=== PATIENT | male | born 1950 | race Caucasian/White ===

== ENCOUNTER 2017-01-17 07:05 | Inpatient (IN) | payer OTHER ==
[~2017-01-17] VITALS: Ht 175.3 cm; Wt 129.0 kg
--- NOTE | 2017-01-17 07:25 | NUR ---
HX CHRONIC BACK PAIN, WORSE TODAY, C/O DIARRHEA, DECREASED APPETITE, GENERALIZED WEAKNESS, DR MORENO AT BEDSIDE, LABS DRAWN AND SENT TO LAB
[2017-01-17 07:45] LABS: PLATELET COUNT 237 x10^3mcL (130-400)
[2017-01-17 08:14] LABS: RED CELL DISTRIBUTION WIDTH 15.7 % (11.5-14.5)
[2017-01-17 08:36] LABS: CK-MB 2.6 ng/mL (0-3.6)
[2017-01-17 08:52] LABS: BILIRUBIN TOTAL 0.57 mg/dL (0.20-1.00); C REACTIVE PROTEIN 3.4 mg/dL (<=0.9); CALCIUM 7.3 mg/dL (8.5-10.1); CARBON DIOXIDE 19.3 mmol/L (21-32); CREATININE SERUM 3.7 mg/dL (0.7-1.3)
[2017-01-17 08:54] LABS: ALBUMIN 1.2 g/dL (3.4-5.0); TOTAL PROTEIN, SERUM 4.5 g/dL (6.4-8.2)
[2017-01-17 08:57] LABS: POTASSIUM SERUM 5.8 mmol/L (3.5-5.1)
[2017-01-17 09:11] LABS: SEGMENTED NEUTROPHILS 52 % (37-75)
[2017-01-17 09:12] LABS: ATYPICAL LYMPH 1 %; BAND NEUTROPHIL 32 % (0-10); BASOPHIL 0 % (0-2); MONOCYTE 6 % (0-7)
[2017-01-17 09:13] LABS: PLATELET MORPHOLOGY N; rbc morphology (normal/abnorm) ABNORMAL (NORMAL)
[2017-01-17 09:29] LABS: ERYTHROCYTE SED RATE 42 mm/hr (0-20)
[2017-01-17] MEDS ORDERED: HYDROXYCHLOROQ200 MG PO (09:53)
[2017-01-17] MEDS ORDERED: CARVEDILOL12.5 M1 PO (09:53)
[2017-01-17] MEDS ORDERED: PREDNISONE5 MG PO (09:53)
[2017-01-17] MEDS ORDERED: FUROSEMIDE40 MG PO (09:54)
[2017-01-17] MEDS ORDERED: KLOR-CON M2020 MEQ PO (09:54)
--- NOTE | 2017-01-17 09:54 | NUR ---
16 FR JACOBSON CATH INDWELLING, ASEPTIC PROCEDURE, WELL TOLERATED, URINE TO LAB
[2017-01-17] MEDS ORDERED: METOLAZONE5 M1 PO (09:55)
[2017-01-17] MEDS ORDERED: ALDACTONE25 MG PO (09:55)
[2017-01-17 10:04] LABS: microscopic required? NO
[2017-01-17 10:14] LABS: urine erythrocyte NEGATIVE (NEGATIVE)
--- NOTE | 2017-01-17 10:30 | NUR ---
RESIDENT SAMEER DE OLIVEIRA AT BEDSIDE
[2017-01-17 10:39] LABS: MAGNESIUM 2.1 mg/dL (1.8-2.4)
[2017-01-17 10:45] LABS: CHOLESTEROL/HDL RATIO 3.4
--- NOTE | 2017-01-17 10:59 | NUR ---
REPORT GIVEN TO DARRYL RN FOR FURTHER CARE OF PT
--- NOTE | 2017-01-17 11:05 | NUR ---
PT ARRIVED TO UNIT AT THIS TIME ACCOMPANIED BY ED NURSE AND TECH. PT TRANSFERRED TO ICU BED VIA DRAWSHEET METHOD. PT A&OX4 BUT DROWSY. RASH NOTED TO RUE AND BACK. PT STATES HAVING COME TO THE HOSPITAL FOR "SEVERE BACK PAIN" BUT "FEELS BETTER NOW". PT PLACED ON MONITOR. PT HAS AICD IN L UPPER CHEST.
[2017-01-17 11:17] LABS: POTASSIUM SERUM 4.9 mmol/L (3.5-5.1)
--- NOTE | 2017-01-17 11:23 | NUR ---
DR DE OLIVEIRA CALLED AT THIS TIME AND INFORMED THAT PT IS STATING THAT HE IS UNSURE OF CODE STATUS. PT'S BP ALSO 72/47 WITH MAP 56. PHYSICIAN INFORMED. STATED SHE WILL BE DOWN TO ASSESS.
[2017-01-17 11:25] LABS: CALCIUM 7.5 mg/dL (8.5-10.1); CARBON DIOXIDE 17.8 mmol/L (21-32); CREATININE SERUM 3.9 mg/dL (0.7-1.3)
--- NOTE | 2017-01-17 11:26 | NUR ---
DR DE OLIVEIRA AT BEDSIDE AT THIS TIME TO DISCUSS CODE STATUS WITH PT. PT STATES WANTING TO DISCUSS CODE STATUS WITH HIS . PT EDUCATED ON CENTRAL LINE PLACEMENT. PT CONSENTED TO CENTRAL LINE.
--- NOTE | 2017-01-17 11:33 | NUR ---
CRITICAL RECEIVED FROM LAB AT THIS TIME. GLUCOSE 57. BLOOD SUGAR CHECKED AT BEDSIDE, POC. 30. RECHECKED. 30. DR DE OLIVEIRA PAGED. D50 IVP ADMINISTERED AT THIS TIME.
--- NOTE | 2017-01-17 11:35 | NUR ---
FLUID BOLUS COMPLETED AT THIS TIME.
--- NOTE | 2017-01-17 11:54 | NUR ---
CALLED PHARMACY AT THIS TIME TO REQUEST BAG OF LEVOPHED
--- NOTE | 2017-01-17 12:05 | NUR ---
LEVOPHED INITIATED AT THIS TIME AT 2MCG/MIN. PT'S BP 84/42 MAP 56. WILL MONITOR AND INCREASE DOSING NEEDED.
--- NOTE | 2017-01-17 12:12 | NUR ---
PT'S LEVOPHED TITRATED UP TO 4MCG/MIN AT THIS TIME. BP 90/24 WITH MAP 62
[2017-01-17 12:16] VITALS: BP 87/46
--- NOTE | 2017-01-17 12:30 | NUR ---
PT'S LEVOPHED TITRATED UP TO 6MCG/MIN AT THIS TIME. BP 80/51 WITH A MAP 61
--- NOTE | 2017-01-17 12:48 | NUR ---
PT'S BLOOD SUGAR ASSESSED AT THIS TIME. 30, REPEAT 34. D50 IVP GIVEN. WILL REASSESS.
--- NOTE | 2017-01-17 12:51 | NUR ---
PT' LEVOPHED TITRATED UP TO 8MCG/MIN AT THIS TIME. BP 86/43 WITH MAP 64
--- NOTE | 2017-01-17 12:52 | NUR ---
TIME OUT AT BEDSIDE WITH MANUFACTURING PROJECT MANAGER AND DR. ALMEIDA AND . DR. SY AND AT BEDSIDE TO INSERT CENTRAL LINE.
--- NOTE | 2017-01-17 13:29 | NUR ---
PORTABLE CHEST XRAY AT BEDSIDE TO CONFIRMED RIJ PLACEMENT.
[2017-01-17 14:58] LABS: T3 TOTAL 0.53 ng/mL
--- NOTE | 2017-01-17 15:15 | NUR ---
DR GREEN AT BEDSIDE AT THIS TIME WITH DR DE OLIVEIRA. ALL QUESTIONS ANSWERED. UPDATES PROVIDED. NEW ORDERS RECEIVED AT THIS TIME.
--- NOTE | 2017-01-17 15:21 | NUR ---
BS 57, REPEAT BS 52. WILL PUSH D50 AND NOTIFY .
--- NOTE | 2017-01-17 15:29 | NUR ---
DR. GREEN AT BEDSIDE ASSESSING PT.
--- NOTE | 2017-01-17 15:35 | NUR ---
PT PLACED ON BIPAP AT THIS TIME PER DR GREEN'S ORDER.
[2017-01-17 15:56] LABS: RED BLOOD CELLS 3.3 M/mm3 (4.52-5.90)
--- NOTE | 2017-01-17 16:00 | NUR ---
DR GREEN AND CHARGE NURSE IN FAMILY CONFERENCE AT THIS TIME. POC DISCUSSED. PALLIATIVE CARE PLAN DISCUSSED WITH FAMILY. FAMILY TO UPDATE STAFF.
--- NOTE | 2017-01-17 16:15 | NUR ---
PT'S LEVOPHED TITRATED UP TO 13MCG/MIN AT THIS TIME. SBP TRENDING IN 70S WITH MAP 54.
--- NOTE | 2017-01-17 16:18 | NUR ---
MICRO CALLED UNIT AT THIS TIME. PT HAS GRAM NEGATIVE RODS IN BLOOD. SUPERVISOR ESTIMATOR AND DRAFTER PAGED.
[2017-01-17 16:19] LABS: IRON 5 ug/dL (65-170); TOTAL IRON BINDING CAPACITY 156 ug/dL (250-450)
--- NOTE | 2017-01-17 16:25 | NUR ---
LAB CALLED UNIT AT THIS TIME. TROPONINS 0.148 DR DE OLIVEIRA PAGED.
--- NOTE | 2017-01-17 16:30 | NUR ---
CALL PHONE CALLED AT THIS TIME. BLOOD SUGAR REMAINS IN THE 50s. D50 HAS BEEN GIVEN X5. NS DC'D. D5NS RATE INCREASED TO 125ML/HR PER DR ALMEIDA.
--- NOTE | 2017-01-17 16:30 | NUR ---
BP 84/48 MAP 61, HR 53, TIATRATE LEVOPHED TO 22MCG/MIN.
--- NOTE | 2017-01-17 16:35 | NUR ---
DR DE OLIVEIRA CALLED UNIT AT THIS TIME. INFORMED OF GRAM NEGATIVE RODS IN BLOOD, TROPONIN LEVEL TRENDING UP, AND CHANGES TO BLOOD SUGAR AND D5NS LEVEL. NO NEW ORDERS RECEIVED.
--- NOTE | 2017-01-17 16:39 | NUR ---
PT'S BP 71/43 MAP 61 TIATRATE LEVOPHED TO 15MCG/MIN. WILL CONTINUE TO MONITOR.
[2017-01-17 16:45] LABS: FREE T4 1.53 ng/dL (0.76-1.46); FREE THYROXINE INDEX 2.4 ug/dL (1.4-4.5); T4(THYROXINE) 6.3 ug/dL (4.7-13.3)
--- NOTE | 2017-01-17 17:00 | NUR ---
BP 75/44 MAP 53 TIATRATE LEVOPHEN TO 17MCG/MIN.
--- NOTE | 2017-01-17 17:13 | NUR ---
DR. WU PHONE IN ORDERS FOR STAT DOPAMINE TO TIATRATE UP TO 20MCG AND SBP >100. ALBUMIN 100CC FOR 25% Q8HR X3. EKG STAT AND REPEAT EKG TOMORROW AM.
--- NOTE | 2017-01-17 17:15 | NUR ---
DR GREEN CALLED UNIT AT THIS TIME. ABG RESULTS READ TO PHYSICIAN BY CHIRAG MACKENZIE. PER DR GREEN, CODE STATUS TO BE CONFIRMED BY R2 AND PT'S . IF PT IS FULL CODE, PT TO BE INTUBATED.
--- NOTE | 2017-01-17 17:18 | NUR ---
DR ALMEIDA CALLED AND NOTIFIED OF NEED TO HAVE CODE STATUS DISCUSSION WITH PT'S .
--- NOTE | 2017-01-17 17:30 | NUR ---
DR ALMEIDA AND DR DE OLIVEIRA SPEAKING TO PT'S ABOUT CODE STATUS. PT REMAINS FULL CODE. PT'S INFORMED THAT PT WILL HAVE TO BE INTUBATED.
--- NOTE | 2017-01-17 17:30 | NUR ---
BP 84/46 MAP45 HR 62 TIATRATE LEVOPHED TO 19MCG/MIN.
--- NOTE | 2017-01-17 17:45 | NUR ---
ORDER RECEIVED FROM DR GREEN TO INTUBATE, DR KRAUSE FROM ED NOTIFIED.
--- NOTE | 2017-01-17 17:50 | NUR ---
2 AMP BICARB ADMINISTERED, [address] GREEN AND AN ADDITIONAL PER DR KRAUSE.
--- NOTE | 2017-01-17 18:00 | NUR ---
ONE [facility] EPI PROVIDED TO DR KRAUSE FOR PREMEDICATION.
--- NOTE | 2017-01-17 18:10 | NUR ---
INTUBATION NOTE: 1805: ETOMIDATE 10MG ADMINISTERED 1806: ROCURONIUM 100MG ADMINISTERED 1807: PT INTUBATED BY DR ALMEIDA AND DR KRAUSE ETT SIZE 8.0 LL 23. INITIAL VENT SETTINGS: AC MODE Vt 600, RATE 20, FiO2 100%, PEEP 5.
[2017-01-17 18:19] VITALS: BP 85/61; BP 86/61
[2017-01-17 18:45] LABS: CREATININE SERUM 3.6 mg/dL (0.7-1.3); POTASSIUM SERUM 4.9 mmol/L (3.5-5.1)
--- NOTE | 2017-01-17 19:15 | NUR ---
HEAD STRENGTH AND CONDITIONING COACH AT BEDSIDE FOR CHEST XRAY.
--- NOTE | 2017-01-17 19:20 | NUR ---
RECEIVED PT REPORT FROM HANSEL ANDREWS. QUESTIONS AND CONCERNS ADDRESSED BEDSIDE.
--- NOTE | 2017-01-17 19:21 | NUR ---
RECEIVED PT INTUBATED, ETT AT 24 LL, 8.0 TUBE SIZE. DOES NOT FOLLOW COMMANDS, UNABLE TO MAKE NEEDS KNOWN. RESPONDS TO PAINFUL STIMULUS, PUPILS 3MM SLUGGISH REACTION TO LIGHT BILATERALLY. ETT TO VENT SETTINGS, AC MODE, RATE 20, FIO2 100%, PEEP 5, VT 600. CLEAR LUNG SOUNDS BUL, DIMINISHED BLL. PT HAS PACEMAKER IN PLACE, S1/S2 HEART TONES AUSCULTATED. CAP REFILL AT 3 SECONDS, WEAK PULSES BUE/BLE, +1 EDEMA TO BUE/BLE, DUSKEY DISCOLORATION TO BUE/BLE. ABDOMEN IF FIRM/DISTENDED, HYPOACTIVE BOWEL SOUNDS. F/C IN PLACE DRAINING TO GRAVITY, NO PENILE DISCHARGE, SCROTAL EDEMA NOTED. OGT IN PLACE. TURNED AND REPOSITIONED Q2H. SINUS ROSALINDA NOTED TO LENS POLISHER HAND. WILL MONITOR PT CLOSELY.
--- NOTE | 2017-01-17 19:35 | NUR ---
JOCELINE RT AT BEDSIDE, FIO2 TITRATED TO 50%.
[2017-01-17 19:55] VITALS: BP 89/59
[2017-01-17 20:00] VITALS: BP 111/68
--- NOTE | 2017-01-17 20:10 | NUR ---
PRINTED CIRCUIT LAYOUT TAPER, DR. WARE, DR. ALMEIDA AT [facility] FOR L CENTRAL LINE PLACEMENT, AND R NICOLE CATH PLACEMENT.
--- NOTE | 2017-01-17 21:00 | NUR ---
XRAY TECHS AT BEDSIDE FOR XRAY.
--- NOTE | 2017-01-17 21:10 | NUR ---
JOCELINE RT AT BEDSIDE, RATE TITRATED TO 18, VT TITRATED TO [address] OCONONR.
--- NOTE | 2017-01-17 21:12 | NUR ---
DR. GODWIN AT BEDSIDE, NEW ORDERS RECEIVED.
--- NOTE | 2017-01-17 21:56 | NUR ---
RT AT BEDSIDE FOR ABG.
[2017-01-17 22:20] VITALS: BP 108/56
--- NOTE | 2017-01-17 22:43 | NUR ---
UNABLE TO OBTAIN ABG AFTER MULTIPLE ATTEMPTS FROM [facility]'S GISELLE VINES D.TRAN; DR. LU NOTIFIED. VENOUS SAMPLE REPORTED TO DR. LU.
[2017-01-17 23:55] VITALS: BP 111/51
[2017-01-18] VITALS (18 sets, daily range): BP systolic 74–119; BP diastolic 45–82
--- NOTE | 2017-01-18 00:30 | NUR ---
JOCELINE RT AT BEDSIDE, FIO2 TIRTRATED TO 40%.
--- NOTE | 2017-01-18 01:55 | NUR ---
JOCELINE RT AT BEDSIDE, FIO2 TITRATED TO 35%.
--- NOTE | 2017-01-18 02:45 | NUR ---
VERSED STARTED AT 1 MG/HR, AND FENTANYL STARTED AT 1 MCG/KG/HR AT THIS TIME. WILL MONITOR PT CLOSELY.
--- NOTE | 2017-01-18 03:23 | NUR ---
PEDIATRIC PHYSICIAN ASSISTANT AT BEDSIDE FOR BLOOD DRAW.
--- NOTE | 2017-01-18 04:07 | NUR ---
DIALYSIS NURSE AT BEDSIDE AT THIS TIME FOR DIALYSIS.
[2017-01-18 04:22] LABS: CALCIUM 6.9 mg/dL (8.5-10.1); CARBON DIOXIDE 21.8 mmol/L (21-32); CREATININE SERUM 3.7 mg/dL (0.7-1.3); PHOSPHOROUS 5.6 mg/dL (2.5-4.9); POTASSIUM SERUM 4.2 mmol/L (3.5-5.1)
[2017-01-18 04:26] LABS: MAGNESIUM 1.7 mg/dL (1.8-2.4); URIC ACID 8.3 mg/dL (3.5-7.2)
--- NOTE | 2017-01-18 04:27 | NUR ---
PAGE GATED DR. WARE ABOUT TROPININ LEVEL.
--- NOTE | 2017-01-18 05:00 | NUR ---
INFORMATION SERVICES ASSISTANT AT BEDSIDE FOR BLOOD DRAW.
--- NOTE | 2017-01-18 05:20 | NUR ---
DR. DIAZ AT BEDSIDE, QUESTIONS AND CONCERNS ADDRESSED BEDSIDE.
--- NOTE | 2017-01-18 05:27 | NUR ---
DR. LINDSEY AT BEDSIDE, QUESTIONS AND CONCERNS ADDRESSED BEDSIDE.
--- NOTE | 2017-01-18 06:55 | NUR ---
DAILYSIS FINISHED AT THIS TIME. 500 ML OUT.
--- NOTE | 2017-01-18 07:00 | NUR ---
PT REPORT GIVEN TO HANSEL KEITA. QUESTIONS AND CONCERNS ADDRESSED BEDSIDE.
--- NOTE | 2017-01-18 07:05 | NUR ---
REPORT RECEIVED AT THIS TIME FROM NOC RN. ALL QUESTIONS ANSWERED, ALL CONCERNS ADDRESSED.
--- NOTE | 2017-01-18 07:30 | NUR ---
HEMODIALYSIS FINISHED AT THIS TIME. NURSE REMOVED 500ML. PT TOLERATED WELL.
--- NOTE | 2017-01-18 07:55 | NUR ---
RT AT BEDSIDE FOR EKG.
--- NOTE | 2017-01-18 08:00 | NUR ---
PT ASSESSED AT THIS TIME. PT LAYING IN BED RESTING COMFORTABLY AT THIS TIME. PT REMAINS SEDATED AT 1MG/HR OF VERSED AND 1MCG/KG/HR OR FENTANYL. PT HAS MRSS 3 AT THIS TIME. PT ABLE TO MAKE NEEDS KNOWN BY NODDING. NO ACUTE SIGNS OF DISTRESS NOTED. WILL CONTINUE TO MONITOR.
--- NOTE | 2017-01-18 08:40 | NUR ---
PT HAVING LIQUID STOOLS AT THIS TIME. FULL BED BATH AND LINEN CHANGE PROVIDED.
--- NOTE | 2017-01-18 08:52 | NUR ---
DR BAH AND RESIDENTS ROUNDING AT THIS TIME. UPDATES PROVIDED. NEW ORDERS RECEIVED.
--- NOTE | 2017-01-18 09:05 | NUR ---
DR GODWIN ON UNIT AT THIS TIME. UPDATES PROVIDED. NO NEW ORDERS RECEIVED.
[2017-01-18 09:31] LABS: IRON 6 ug/dL (65-170); TOTAL IRON BINDING CAPACITY 167 ug/dL (250-450)
[2017-01-18 09:42] LABS: BILIRUBIN TOTAL 0.81 mg/dL (0.20-1.00); CALCIUM 7.2 mg/dL (8.5-10.1); CARBON DIOXIDE 21.4 mmol/L (21-32); CREATININE SERUM 2.6 mg/dL (0.7-1.3); POTASSIUM SERUM 3.5 mmol/L (3.5-5.1)
[2017-01-18 09:45] LABS: TOTAL PROTEIN, SERUM 4.4 g/dL (6.4-8.2)
[2017-01-18 09:46] LABS: ALBUMIN 0.9 g/dL (3.4-5.0)
--- NOTE | 2017-01-18 09:55 | NUR ---
DR SLAUGHTER AT BEDSIDE AT THIS TIME TO ASSESS PT. NO NEW ORDERS RECEIVED, UPDATES PROVIDED.
--- NOTE | 2017-01-18 10:01 | NUR ---
PT'S FAMILY BROUGHT IN CARD FOR AICD. COMPANY NOTIFIED OF ORDER TO INTERROGATE. WILL ARRIVE BETWEEN 1200 AND 1400
[2017-01-18 10:21] LABS: RED BLOOD CELLS 3.65 M/mm3 (4.52-5.90)
--- NOTE | 2017-01-18 10:25 | NUR ---
DR SLAUGHTER CALLED UNIT AT THIS TIME. UPDATED ON STATUS. NEW ORDERS RECEIVED.
--- NOTE | 2017-01-18 10:32 | NUR ---
PT'S LEVOPHED INCREASED AT THIS TIME TO 23MCG/MIN. PT'S BP 85/41 WITH MAP 51.
--- NOTE | 2017-01-18 10:44 | NUR ---
FIRST DOSE OF ALBUMIN INITIATED AT THIS TIME. PER PHYSICIAN ORDER, NS PLACED ON HOLD DURING THIS PROCESS.
--- NOTE | 2017-01-18 10:45 | NUR ---
PT'S LEVOPHED INCREASED TO 25MCG/MIN AT THIS TIME. PT'S MAP TRENDING IN THE 50s.
--- NOTE | 2017-01-18 11:00 | NUR ---
PT'S UPDATED ON PT'S STATUS AND IS EXPRESSING CONCERN ABOUT PT'S CODE STATUS. DR ALMEIDA AT BEDSIDE TO DISCUSS. PT NOW A DNR.
[2017-01-18 11:01] LABS: PLATELET COUNT 55 x10^3mcL (130-400); RED CELL DISTRIBUTION WIDTH 16.2 % (11.5-14.5)
[2017-01-18 11:12] LABS: BAND NEUTROPHIL 33 % (0-10); METAMYELOCTE 7 % (0-2); MONOCYTE 3 % (0-7); MYELOCYTE 1 % (0-2); SEGMENTED NEUTROPHILS 46 % (37-75); rbc morphology (normal/abnorm) ABNORMAL (NORMAL)
[2017-01-18 11:13] LABS: ovalocyte/elliptocyte 1+
--- NOTE | 2017-01-18 12:00 | NUR ---
PT'S LEVOPHED TITRATED UP TO 27MCG/MIN AT THIS TIME. BP 77/47 MAP 59
--- NOTE | 2017-01-18 12:02 | NUR ---
LASIX IVP ADMINISTERED AT THIS TIME PER DR SLAUGHTER'S ORDER, AWARE OF PT'S BLOOD PRESSURE AND PRESSORS.
--- NOTE | 2017-01-18 12:05 | NUR ---
PT REASSESSED AT THIS TIME. PT LAYING IN BED. SEDATION DECREASED AT THIS TIME. FENTANYL DECREASED TO 0.5MCG/KG/HR AND VERSED REMAINS AT 1MG/HR AT THIS TIME. PT REMAINS ORALLY INTUABTED ON VENT. PT DENIES PAIN AND DISCOMFORT AT THIS TIME. WILL CONTINUE TO MONITOR.
--- NOTE | 2017-01-18 12:57 | NUR ---
RT PLACED PT ON FiO2 30% AT THIS TIME.
--- NOTE | 2017-01-18 13:11 | NUR ---
PT'S LEVOPHED MAXED AT THIS TIME AT 30MCG/MIN. PT'S BLOOD PRESSURE 84/46 MAP 62. WILL CONTINUE TO MONITOR.
--- NOTE | 2017-01-18 13:30 | NUR ---
ST LIANET STAFF MEMBER AT BEDSIDE AT THIS TIME TO INTERROGATE PT'S DEVICE. ALL ASPECTS OF DEVICE ARE FUNCTIONING PROPERLY ACCORDING TO REPORT. NO ALTERATIONS MADE. WILL CONTINUE TO MONITOR.
--- NOTE | 2017-01-18 14:15 | NUR ---
PT'S FiO2 TITRATED DOWN TO 28% BY RT
--- NOTE | 2017-01-18 14:33 | NUR ---
PHARMACIST CALLED AT THIS TIME TO VERIFY DOSING FOR OBESE PTS FOR DOPAMINE DRIP. WILL INITIATE DRIP WHEN INDICATED FOR MAP <65
--- NOTE | 2017-01-18 14:50 | NUR ---
DOPAMINE DRIP INITIATED AT THIS TIME AT 10MCG/KG/MIN PER PHARMACY PROTOCOL FOR VASOACTIVE PROPERTIES. PT'S MAP CURRENTLY 63.
--- NOTE | 2017-01-18 15:00 | NUR ---
PT'S BP 108/64 WITH MAP 80. PT'S LEVOPHED TITRATED DOWN TO 28MCG/MIN.
--- NOTE | 2017-01-18 15:10 | NUR ---
PT'S MAP REMAINS AT 80 AT THIS TIME. SBP GREATER THAN 100. LEVOPHED TITRATED DOWN TO 24MCG/MIN AT THIS TIME. WILL CONTINUE TO MONITOR.
--- NOTE | 2017-01-18 15:20 | NUR ---
PT'S BLOOD PRESSURE REMAINS STABLE AT THIS TIME WITH SBP >110 AND MAP IN 80S. PT'S LEVOPHED TITRATED DOWN TO 20MCG/MIN. WILL CONTINUE TO MONITOR.
--- NOTE | 2017-01-18 15:31 | NUR ---
PT'S HR >100. SBP TRENDING >110, MAP >80. PT'S DOPAMINE TITRATED TO 8MCG/KG/MIN. WILL CONTINUE TO MONITOR.
--- NOTE | 2017-01-18 15:40 | NUR ---
PT'S LEVOPHED TITRATED DOWN AT THIS TIME TO 15 MCG/MIN. PT'S SBP >110, MAP >80. WILL CONTINUE TO MONITOR.
--- NOTE | 2017-01-18 15:50 | NUR ---
PT REASSESSED AT THIS TIME. PT LAYING IN BED RESTING COMFORTABLY AT THIS TIME. PT REMAINS SEDATED AND ORALLY INTUBATED. NO ACUTE CHANGES IN OVERALL STATUS AT THIS TIME. WILL CONTINUE TO MONITOR.
--- NOTE | 2017-01-18 16:00 | NUR ---
PT'S SBP TRENDING >110 AND MAP TRENDING >80 AT THIS TIME. LEVOPHED TITRATED DOWN TO 12MCG/MIN. WILL CONTINUE TO MONITOR.
--- NOTE | 2017-01-18 16:20 | NUR ---
PT'S HR REMAINS ELEVATED >100. SBP MAINTAINING >100, MAP >80. DOPAMINE TITRATED DOWN TO 7MCG/KG/MIN.
--- NOTE | 2017-01-18 16:39 | NUR ---
PT'S BP 118/60 WITH MAP 87, HR 96 LEVOPHED TITRATED DOWN TO 12MCG/MIN AND DOPAMINE TITRATED DOWN TO 7MCG/KG/MIN.
--- NOTE | 2017-01-18 16:50 | NUR ---
DR REYNOLDS ON UNIT AT THIS TIME TO SEE PT. UPDATES PROVIDED. NO NEW ORDERS RECEIVED.
--- NOTE | 2017-01-18 16:55 | NUR ---
PT'S BLOOD PRESSURE 112/78 WITH MAP 88. LEVOPHED TITRATED DOWN TO 10MCG/MIN AT THIS TIME.
--- NOTE | 2017-01-18 16:59 | NUR ---
DR SOLORIO ON UNIT AT THIS TIME TO ASSESS PT. UPDATES PROVIDED.
--- NOTE | 2017-01-18 16:59 | NUR ---
RT AT BEDSIDE PERFORMING EKG
--- NOTE | 2017-01-18 17:10 | NUR ---
PT'S BLOOD PRESSURE 113/68 WITH MAP 85. LEVOPHED TITRATED DOWN TO 8MCG/MIN.
--- NOTE | 2017-01-18 17:29 | NUR ---
PT'S BLOOD PRESSURE 113/81 WITH A MAP 93. LEVOPHED TITRATED DOWN TO 6MCG/MIN.
--- NOTE | 2017-01-18 17:52 | NUR ---
PT'S BLOOD PRESSURE 114/56 WITH MAP 77. PT'S LEVOPHED TITRATED DOWN TO 4MCG/MIN AT THIS TIME.
--- NOTE | 2017-01-18 18:06 | NUR ---
PT'S BP 113/68 MAP 77. PT'S LEVOPHED TITRATED DOWN TO 2MCG/MIN AT THIS TIME.
--- NOTE | 2017-01-18 18:29 | NUR ---
LEVOPHED PLACED ON HOLD AT THIS TIME. BP 106/61 WITH A MAP OF 80.
--- NOTE | 2017-01-18 19:15 | NUR ---
PT REPORT RECEIVED FROM HANSEL KEITA. QUESTIONS AND CONCERNS ADDRESSED BEDSIDE.
--- NOTE | 2017-01-18 19:30 | NUR ---
RECEIVED PT LAYING IN BED, HOB AT 30 DEGREES, INTUBATED AND SEDATED ON VERSED AT 1 MG/HR, AND FENTANYL AT 1 MCG/KG/HR. MRSS OF 4, DOES NOT FOLLOW COMMANDS, UNABLE TO MAKE NEEDS KNOWN, OPENS EYES TO VERBAL TACTILE STIMULUS. NICOLE CATH TO RIJ, LIJ TLC CDI INFUSING NS AT 100 ML/HR, AND DOPAMINE AT 7 MCG/KG/MIN. OGT IN PLACE AND SECURED, PT IS NPO AT THIS TIME. TRACHEA MIDLINE, NO DRAIANGE TO NARES/EYES BILATERALLY. ETT IN PLACE AND SECURED, TUBE SIZE 8.0, LL 24. VENT SETTINGS, AC MODE, RATE 18, VT 500, PEEP 5, FIO2 28%. EVEN AND UNLABORED BREATHING, SYMMETRICAL CHEST EXPANSION NOTED. PACEMAKER IN PLACE TO LEFT UPPER CHEST, A FLUTTER NOTED TO ASSEMBLER FINGER BUFFS, DR. REYNOLDS IS AWARE. S1/S2 HEART TONES AUSCULTATED, CHEST WALL STABLE, NO S/S OF CHEST PAIN NOTED. CAP REFILL IMMEDIATE, PULSES WEAK BUE/BLE, +2 EDEMA NOTED TO BUE/BLE, DUSKY DISCOLORATION NOTED TO BUE/BLE, WEEPING NOTED TO LUE. ABDOMEN SOFT/ROUND, NO BM NOTED AT THIS TIME, PT HAD LIQUID BM THROUGHOUT THE DAY. F/C DRAINING TO GRAVITY, YELLOW COLORED URINE NOTED, NO PENILE DISCHARGE, SCROTAL EDEMA NOTED. TURNED AND REPOSITIONED Q2H TO PREVENT SKIN BREAKDOWN, NO CONTRACTURES OR DEFORMITIES NOTED. WILL MONITOR PT CLOSELY.
[2017-01-18 22:28] LABS: AMPHETAMINE QUAL UR NONE DETECTED (NEG <=1000)
[2017-01-19] VITALS (18 sets, daily range): BP systolic 83–112; BP diastolic 53–69
[2017-01-19 06:13] LABS: CALCIUM 7.4 mg/dL (8.5-10.1); CARBON DIOXIDE 24.5 mmol/L (21-32); CREATININE SERUM 2.9 mg/dL (0.7-1.3); PHOSPHOROUS 5.1 mg/dL (2.5-4.9); POTASSIUM SERUM 3.3 mmol/L (3.5-5.1)
--- NOTE | 2017-01-19 07:00 | NUR ---
REPORT RECEIVED FROM NOC RN AT BEDSIDE AT THIS TIME. ALL QUESTIONS ANSWERED, ALL CONCERNS ADDRESSED.
--- NOTE | 2017-01-19 07:02 | NUR ---
PT REPORT GIVEN TO BOSSMAN RN, QUESTIONS AND CONCERNS ADDRESSED BEDSIDE.
[2017-01-19 07:07] LABS: PLATELET COUNT 20 x10^3mcL (130-400); RED CELL DISTRIBUTION WIDTH 16.1 % (11.5-14.5)
--- NOTE | 2017-01-19 07:10 | NUR ---
PT ASSESSED AT THIS TIME. PT REMAINS SEDATED ON FENTANYL AND VERSED. ORALLY INTUBATED AND ON VENTILATOR. PT REMAINS ON DOPAMINE DRIP. AROUSABLE AND ABLE TO ANSWER QUESTIONS BY NODDING "YES" OR "NO". PT ABLE TO FOLLOW COMMANDS. NO ACUTE SIGNS OF DISTRESS NOTED. WILL CONTINUE TO MONITOR PT'S STATUS THROUGHOUT SHIFT.
--- NOTE | 2017-01-19 07:35 | NUR ---
RT AT BEDSIDE FOR EKG
--- NOTE | 2017-01-19 07:55 | NUR ---
SEDATION VACATION PROVIDED AT THIS TIME. PT ABLE TO FOLLOW COMMANDS. BECAME RESTLESS. SEDATION CONTINUED AT VERSED 1MG/HR AND FENTANYL 1MCG/KG/HR
--- NOTE | 2017-01-19 07:58 | NUR ---
PT'S DOPAMINE INCREASED TO 8MCG/KG/MIN AT THIS TIME. PT'S BP 83/54 WITH MAP 66
--- NOTE | 2017-01-19 08:00 | NUR ---
LAB AT BEDSIDE AT THIS TIME FOR LAB DRAW
--- NOTE | 2017-01-19 09:15 | NUR ---
CRITICAL FINDING RECEIVED. PT HAS E.COLI MDRO IN BLOOD. DR LINDSEY MADE AWARE. PT ON AMIKIN AND MERREM. WILL INFORM DR GODWIN.
--- NOTE | 2017-01-19 09:55 | NUR ---
DR BAH AND RESIDENTS ROUNDING AT THIS TIME. UPDATES PROVIDED. ORDERS RECEIVED AT THIS TIME. IV FLUIDS DC'd. PLT COUNT TO BE REDRAWN.
--- NOTE | 2017-01-19 10:02 | NUR ---
IV SITE REMOVED FROM L FA. IV NO LONGER IN USE AT THIS TIME. PT'S ARM IS WEEPING. L FA DSG CHANGED AT THIS TIME. SATURATED WITH SERROUS FLUID. STERI STRIPS LEFT IN PLACE.
--- NOTE | 2017-01-19 10:13 | NUR ---
DR SLAUGHTER ON UNIT AT THIS TIME. UPDATES PROVIDED. DR SLAUGHTER AT BEDSIDE TO ASSESS PT. HEMODIALYSIS WILL NOT BE PERFORMED TODAY. DR SLAUGHTER WILL REPLACE POTASSIUM.
--- NOTE | 2017-01-19 11:00 | NUR ---
PT REASSESSED AT THIS TIME. PT LAYING IN BED RESTING COMFORTABLY AT THIS TIME. PT REMAINS ORALLY INTUBATED AND ON VENT AT THIS TIME. PT ON DOPAMINE DRIP AND SEDATION. NO IV FLUIDS IN PLACE AT THIS TIME. NO ACUTE CHANGES IN PT STATUS. WILL CONTINUE TO MONITOR.
[2017-01-19 11:58] LABS: BAND NEUTROPHIL 44 % (0-10); BASOPHIL 0 % (0-2); MONOCYTE 11 % (0-7); SEGMENTED NEUTROPHILS 41 % (37-75)
[2017-01-19 12:01] LABS: PLATELET MORPHOLOGY PLATELETS DECREASED; acanthocyte (spur cell) 2+; rbc morphology (normal/abnorm) ABNORMAL (NORMAL)
--- NOTE | 2017-01-19 13:13 | NUR ---
DR GODWIN IN TO SEE PT AT THIS TIME. PT RECEIVING FIRST DOSE OF ROCEPHIN AT THIS TIME. UPDATES PROVIDED. LAB VALUES UPDATED. NO NEW ORDERS RECEIVED.
--- NOTE | 2017-01-19 13:51 | NUR ---
DR REYNOLDS IN TO ASSESS PT AT THIS TIME. UPDATED ON PT'S STATUS AND ALTERATIONS IN STATUS. NO NEW ORDERS RECEIVED.
--- NOTE | 2017-01-19 15:45 | NUR ---
PT REASSESSED AT THIS TIME. PT LAYING IN BED RESTING COMFORTABLY. NO ACUTE SIGNS OF DISTRESS NOTED AT THIS TIME. PT REMAINS INTUBATED AND SEDATED. PT REMAINS ON DOPAMINE DRIP AT THIS TIME. WILL CONTINUE TO MONITOR PT'S STATUS THROUGHOUT SHIFT.
[2017-01-19 16:53] LABS: PLATELET COUNT 22 x10^3mcL (130-400); RED CELL DISTRIBUTION WIDTH 16.4 % (11.5-14.5)
--- NOTE | 2017-01-19 17:03 | NUR ---
DR LINDSEY MADE AWARE OF PLT COUNT TRENDING UP TO 22 AND WBC COUNT TRENDING UP.
[2017-01-19 17:29] LABS: BAND NEUTROPHIL 16 % (0-10); METAMYELOCTE 31 % (0-2); MONOCYTE 2 % (0-7); SEGMENTED NEUTROPHILS 50 % (37-75)
[2017-01-19 17:31] LABS: acanthocyte (spur cell) 2+; rbc morphology (normal/abnorm) ABNORMAL (NORMAL)
--- NOTE | 2017-01-19 18:15 | NUR ---
DR SOLORIO IN TO SEE PT AT THIS TIME. UPDATES PROVIDED AT THIS TIME. NEW ORDERS RECEIVED.
--- NOTE | 2017-01-19 20:00 | NUR ---
RECEIVED SEDATED OPENING EYES TO NAME CALLING ON FENTANYL GTT AT 1 MCG/KG/H AND VERSED AT 1 MG/H.CARDIAC SCOPE SHOWS SR WITH OCCATIONAL PVC'S HR 85 WITH LEFT UPPER CHEST PACEMAKER.INTUBATED ORALLY ON AC MODE FIO2 28% TV 500 RATE 18 PEEP 5 RR 18,DEMINISHED BREATH SOUNDS BASES RECEIVING BREATHING TX PER RT SALLIE.RIGHT IJ WITH NICOLE CATHETER AND LEFT IJ WITH TLC INTACT AND PATENT WITH DOPAMINE GTT AT 8 MCG/KG/MIN INFUSING WELL SBP 96 MEAN [address] AND PTENT STARTED ON NUTREN PULMONARY AT 10 ML/H HOB ELEVATED FOR ASPIRATION PRECAUTION.BED ON LOW POSITION AND CALL LIGHT WITHIN REACH.
[2017-01-20] VITALS (19 sets, daily range): BP systolic 77–114; BP diastolic 48–81
--- NOTE | 2017-01-20 00:09 | NUR ---
REMAINS SEDATED ON FENTANYL VERSED GTT ON SAME RATE NO DISCOMFORT.ON SAME VENT SETTING MAINTAINING O2 SAT 95%;RR 18.ORAL CARE PER VAP PROTOCOL AND REPOSITIONED WITH PILLOW SUPPORT ON BACK;BILATERAL HEELS OFFLOADED.CALL LIGHT WITHIN REACH.
--- NOTE | 2017-01-20 04:08 | NUR ---
REMAINS SEDATED WITH FENTANYL AND VERSED GTT AT SAME RATE.PT OPENING EYES TO STIMULATION.REMAINS AFIB WITH PVC'S.ON SAME VENT SETTING MAINTAINING O2 SAT 95% RR 18 NO DISTRESS NOTED.REMAINS ON DOPAMINE GTT AT 8 MCG/KG/MIN MAINTAINING MEAN BP ABOVE 70 MMHG.ARIANNA WIPES,JACOBSON CARE AND ORAL CARE PER PROTOCOL DONE.JACOBSON DRAINING LARGE AMOUNT RESPONDING WELL TO LASIX.
[2017-01-20 05:50] LABS: CALCIUM 7.4 mg/dL (8.5-10.1); CARBON DIOXIDE 24.2 mmol/L (21-32); CREATININE SERUM 2.8 mg/dL (0.7-1.3); PHOSPHOROUS 5.2 mg/dL (2.5-4.9); POTASSIUM SERUM 3.3 mmol/L (3.5-5.1)
[2017-01-20 06:10] LABS: RED CELL DISTRIBUTION WIDTH 15.9 % (11.5-14.5)
[2017-01-20 06:11] LABS: PLATELET COUNT 16 x10^3mcL (130-400)
[2017-01-20 06:36] LABS: MONOCYTE 9 % (0-7); SEGMENTED NEUTROPHILS 76 % (37-75)
[2017-01-20 06:37] LABS: BAND NEUTROPHIL 13 % (0-10); BASOPHIL 0 % (0-2); METAMYELOCTE 1 % (0-2); MYELOCYTE 1 % (0-2)
[2017-01-20 06:40] LABS: rbc morphology (normal/abnorm) ABNORMAL (NORMAL)
[2017-01-20 06:43] LABS: PLATELET MORPHOLOGY PLATELETS DECREASED; burr cell (echinocyte) 1+
--- NOTE | 2017-01-20 07:10 | NUR ---
RECEIVED REPORT FROM [facility] SHIFT HANSEL MADISON, ALL QUESTIONS AND CONCERNS ADDRESSED AT THIS TIME. WILL ASSUME ALL CARE.
--- NOTE | 2017-01-20 08:15 | NUR ---
[place] RT AT BEDSIDE FOR ABG.
--- NOTE | 2017-01-20 09:00 | NUR ---
PT IS INTUBATED AND SEDATED ON FENT/VERSED, RSS 5 PT HAS SLUGGISH RESPONSE TO STIMULI AND DOES NOT FOLLOW COMMANDS. EYES DO NOT OPEN TO ANY STIMULI AND PUPILS ARE BRISK 2 MM BILATERALLY. PT WITH RIJ NICOLE CATH CDI DRESSING, LIJ INFUSING DOPAMINE 8 MCG/KG/MIN, FENT 1 MCG/KG/HR, VERSED 1 MG/HR. PT HAS +3 PITTING EDEMA TO BUE, +1 PITTING EDEMA TO BLE. PT RECEIVING NUTREN PULM 30 ML/HR WITH A FWF OF 50 Q4H, 5 ML RESIDUALS NOTED, HOB ELEVATED AND TOLERATING WELL. PT SKIN IS WARM AND PALE IN COLOR. PT HAS SCROTAL EDEMA AND NO PENILE DISCHARGE, JACOBSON CATH IN PLACE DRAINING TO GRAVITY PALE YELLOW URINE. PT ON AC MODE, PEEP 5, FI02 28%, RATE 18, VT 500. BUL FINE CRACKLES, BLL DIM, NO SECRETIONS NOTED. PT HAS PACEMAKER TO L CHEST, PT RHYTHM A.FIB WITH OCCASIONAL PVC'S. PT ON BLADE GRINDER. WILL CONTINUE TO MONITOR PT AT THIS TIME.
--- NOTE | 2017-01-20 10:01 | NUR ---
PATIENT ROUNDS WITH DR. CHONG AND RESIDENTS. PRIMARY NURSE AND CHARGE NURSE AT BEDSIDE. UPDATES PROVIDED AND POC DISCUSSED. WILL CONTINUE TO MONITOR.
--- NOTE | 2017-01-20 10:45 | NUR ---
AT BEDSIDE, UPDATES PROVIDED, PER NO HD FOR TODAY, CONTINUE WITH LASIX AND MONITOR KIDNEY FUNCTION. WILL CONTINUE TO MONITOR PT AT THIS TIME.
--- NOTE | 2017-01-20 11:15 | NUR ---
CALLED AT THIS TIME, UPDATES PROVIDED. PT TO START ON MERREM. WILL CONTINUE TO MONITOR PT AT THIS TIME.
--- NOTE | 2017-01-20 11:16 | NUR ---
AT BEDSIDE, UPDATES PROVIDED. PER DR.SANDHU ALEISHA NEWBYUCORTEF AND START PT ON SOLUMEDROL 40 DAILY. WILL CONTINUE TO MONITOR PT AT THIS TIME.
--- NOTE | 2017-01-20 12:12 | NUR ---
TO GIVE DIC PANEL RESULTS TO , PER NO NEW ORDERS AT THIS TIME. WILL CONTINUE TO MONITOR PT AT THIS TIME.
--- NOTE | 2017-01-20 14:30 | NUR ---
AT BEDSIDE, UPDATES PROVIDED. PER , TITRATE FENT TO 0.5 MCG/KG/HR. WILL CONTINUE TO MONITOR PT AT THIS TIME.
--- NOTE | 2017-01-20 15:08 | NUR ---
LAB AT BEDSIDE FOR TYPE AND CROSS FOR BLOOD TRANSFUSION.
--- NOTE | 2017-01-20 16:09 | NUR ---
Initial Nutrition Assessment Dx: Septick shock/acute renal failure PMHx: A-fib s/p pacemaker, SLE, heart failure 2/2 SLE, HTN and chronic back pain. PSHx:None Labs: (01/20) Na:134L, K:3.3L, BH, BUN:67H trending up, Cr:2.8H trending down, Alb:0.9L, Ca:7.4L, Phos:5.2H trending down,. Uric acid:8.3H, AST:51H, Troponin: 0.135H, BNP:1890H, Ammonia:10L, H/H:12/37L. Meds: Albuminar, Colace, D50, Lasix, Levophed, Protonix, Sodium Bicarb, Solu-cortef, Versed, Zofran, Heparin. TF order: Nutren Pulmonary via OGT at 10 ml/hr. Goal rate:30ml/hr, FWF:50ml q 4. Gastric Residuals: (01/19) 30ml (01/20) 5ml Ht: 69in, 5'9 Wt: 274#124.6kg BMI: 40.6 (Extreme obesity, Class III) IBW: 160#73kg %IBW:171 % UBW:220-225# per . Age:66 Food Allergies:None Skin: skin tear to LFA. [place]:12 Edema:+3 BUE. GI: Hypoactive BS. Last BM: none noted. Nutrition Consult: TF. Pt was admitted with septic shock 2/2 aspiration pneumonia vs. cellulits s/p intubation on 01/18. Per progress note(01/20), no acute events overnight. Pt remains intubated and able to follow simple commands with renal function improving. Pt had 1 HD treatment on 01/18, urine output improved with Lasix, no HD needed today. During visit, observed with OG tube in place on Nutren Pulmonary running at 30ml/hr (provides 1080kcal and 49g pro) with FWF 50 ml q4. TF started yesteday and GRV WNL. Problem with: N: No V: No D: No C:No Problems with: Chewing:Yes Swallowing: Yes. Pt with OG tube Current appetite: N/A Recent wt change:49# wt gain %wt change:-22% (severe) Vitamin/Supplement use:None Special diet at home:None Physical activity:None Education: N/A Estimated Nutritional Needs Based on actual body weight 124.6kg Energy: 2087kcal/d ([place] 2010, VE 9.33, Tmax 36.9C) Protein: 146g/d (1-1.2g/day) Fluid: per MD, pt with +3BUE Nutrition Diagnosis 1. Inadequate enteral nutrition support related to pt with septick shock/acute renal failure as evidenced by current TF not meeting pts est needs. (meets 52% est caloric needs and 34% pro needs) 2. Altered nutrition labs related to acute renal failure as evidenced by BUN:67, Cr:2.8 (trending dwon) and Phos: 5.2 (trending down) Intervention 1.Recommend increasing TF Nutren Pulmonary to 35ml/hr (provides 1260kcal, 57g pro FWF:657ml) meets 60% kcal needs and 39% of pro needs) 2. Recommend adding ProSource BID (provides 120kcal and 30g pro) Monitor/Evaluate Goal: 60% of estimated needs Monitor: TF tolerance, Labs, renal function, GI function and wts F/U in 2-3 days as high risk 01/22-
--- NOTE | 2017-01-20 17:00 | NUR ---
MAP 82, TITRATE DOPAMINE TO 6 MCG/KG/MIN. WILL CONTINUE TO MONITOR PT AT THIS TIME.
--- NOTE | 2017-01-20 17:40 | NUR ---
FULL BED BATH WITH GOWN AND LINEN CHANGE PROVIDED AT THIS TIME. CHG WIPES APPLIED PER PROTOCOL. JACOBSON CARE GIVEN AT THIS TIME. WILL CONTINUE TO MONITOR PT AT THIS TIME.
[2017-01-20 18:43] LABS: CALCIUM IONIZED 3.9 mg/dL (4.5-5.6)
--- NOTE | 2017-01-20 18:46 | NUR ---
MAP 74, TITRATE DOPAMINE TO 4 MCG/KG/MIN AT THIS TIME. WILL CONTINUE TO MONITOR PT AT THIS TIME.
--- NOTE | 2017-01-20 19:10 | NUR ---
RECEIVED PT REPORT FROM HANSEL TORRES. QUESTIONS AND CONCERNS ADDRESSED BEDSIDE.
--- NOTE | 2017-01-20 19:15 | NUR ---
RECEIVED PT LAYING IN BED, HOB AT 30 DEGREES. INTUBATED AND SEDATED ON VERSED AT 1 MG/HR AND FENTANYL AT 0.5 MCG/KG/HR. ETT AT 24 LL, TUBE SIZE 8.0, TO VENT SETTINGS AC MODE, RATE 18, VT 500, PEEP 5, FIO2 28%. NICOLE CATH IN PLACE TO RIJ, LIJ TLC CDI INFUSING DOPAMINE AT 4 MCG/KG/MIN. OGT IN PLACE AND SECURED INFUSING NUTREN PULMONARY AT 30 ML/HR WITH 50 ML FWF Q4H, NO RESIDUALS NOTED. SCLERAL EDEMA NOTED, NO DRAIANGE TO NARES BILATERALLY. PULSES WEAK BUE/BLE, CAP REFILL IMMEDIATE, +2 EDEMA TO BUE/BLE, DUSKY DISCOLORATION TO BLE, WEEPING NOTED LUE, SCD'S IN PLACE. ABDOMEN SOFT/ROUND, HYPOACTIVE BOWEL SOUNDS X4 QUADRANTS, NONTENDER ON PALPATION, NO BM NOTED. F/C DRAINING TO GRAVITY, YELLOW COLORED URINE NOTED, NO PENILE DISCHARGE, NO SCROTAL EDEMA NOTED. SKIN WARM/DRY, SKIN TEAR TO LFA, DRESSING IN PLACE. TURNED AND REPOSITIONED Q2H, GENERALIZED WEAKNESS, BED IN LOWEST POSITION FOR PT SAFETY.
--- NOTE | 2017-01-20 20:20 | NUR ---
PLATELET INFUSING IS TO BE STARTED, PRE VITALS TEMP 97.4, HR 75, BP 109/66, RR 18, O2 95%. WILL MONITOR CLOSELY.
--- NOTE | 2017-01-20 20:35 | NUR ---
15 MINUTE VITALS, TEMP 97.5, HR 73, BP 103/68, RR 18, O2 95%, NO S/S OF ADVERSE REACTIONS NOTED, WILL MONITOR CLOSELY.
--- NOTE | 2017-01-20 20:57 | NUR ---
PLATELET INFUSION FINISHED, POST VITALS TEMP 97.3, HR 74, BP 107/64, RR 18, O2 95%. NO S/S ODF ADVERSE REACTIONS NOTED. WILL MONITOR CLOSELY.
[2017-01-21] VITALS (18 sets, daily range): BP systolic 93–120; BP diastolic 42–78
--- NOTE | 2017-01-21 00:33 | NUR ---
CUSTOMER EXPERT AT BEDSIDE FOR BLOOD DRAW.
--- NOTE | 2017-01-21 00:38 | NUR ---
DR. GODWIN AT BEDSIDE TO ASSESS PT. NO NEW ORDERS RECEIVED.
[2017-01-21 01:56] LABS: PLATELET COUNT 36 x10^3mcL (130-400); RED CELL DISTRIBUTION WIDTH 15.9 % (11.5-14.5)
[2017-01-21 02:25] LABS: BAND NEUTROPHIL 10 % (0-10); METAMYELOCTE 5 % (0-2); MONOCYTE 4 % (0-7); MYELOCYTE 1 % (0-2); SEGMENTED NEUTROPHILS 80 % (37-75); rbc morphology (normal/abnorm) ABNORMAL (NORMAL)
[2017-01-21 02:26] LABS: PLATELET MORPHOLOGY PLATELETS DECREASED; burr cell (echinocyte) 2+
--- NOTE | 2017-01-21 05:04 | NUR ---
OUTPATIENT PHYSICAL THERAPIST AT BEDSIDE FOR BLOOD DRAW.
--- NOTE | 2017-01-21 05:24 | NUR ---
AIRCRAFT AVIONICS TECHNICIAN AT BEDSIDE FOR CHEST XRAY.
[2017-01-21 05:55] LABS: BILIRUBIN TOTAL 0.9 mg/dL (0.20-1.00); CALCIUM 7.4 mg/dL (8.5-10.1); CARBON DIOXIDE 25.9 mmol/L (21-32); CREATININE SERUM 2.5 mg/dL (0.7-1.3)
--- NOTE | 2017-01-21 05:57 | NUR ---
DR. LINDSEY AT BEDSIDE TO ASSESS THE PT. QUESTIONS AND CONCERNS ADDRESSED BEDSIDE.
[2017-01-21 05:59] LABS: TOTAL PROTEIN, SERUM 4.5 g/dL (6.4-8.2)
[2017-01-21 06:10] LABS: POTASSIUM SERUM 2.5 mmol/L (3.5-5.1)
--- NOTE | 2017-01-21 06:14 | NUR ---
PAGE GATED DR. LINDSEY ABOUT POTASSIUM OF 2.5 AND BUN OF 72, AWAITING FURTHER ORDERS.
--- NOTE | 2017-01-21 07:00 | NUR ---
RECEIVED REPORT FROM [facility] SHIFT HANSEL DIAS, ALL QUESTIONS AND CONCERNS ADDRESSED AT THIS TIME, WILL ASSUME ALL CARE.
--- NOTE | 2017-01-21 07:00 | NUR ---
PT REPORT GIVEN TO BRIAN HAMM. QUESTIONS AND CONCERNS ADDRESSED BEDSIDE.
--- NOTE | 2017-01-21 07:20 | NUR ---
PT IS INTUBATED AND SEDATED ON 0.5 MCG/KG/HR FENT, 1 MG/HR VERSED, RSS 3 PT IS ABLE TO FOLLOW COMMANDS AND ANSWER YES AND NO QUESTIONS. PT EYES OPEN TO VERBAL STIMULI AND PUPILS ARE BRISK 2 MM BILATERALLY. PT DENIES HEADACHE AT THIS TIME. PT IS INTUBATED WITH 8.0 ETT, 24 LL, VENT SETTINGS: FI02 28%, RATE 18, PEEP 5, VT 500. BUL CLEAR, BLL DIM. NO SECRETIONS NOTED AT THIS TIME. PT RECEIVING NUTREN PULM 30 ML/HR WITH A FWF OF 50 Q4H VIA OGT, NO RESIDUALS NOTED AT THIS TIME. PT ABD IS OBESE, SYMMETRICAL AND NONTENDER TO PALPATION, PT HAS HYPOACTIVE BOWEL SOUNDS X 4 QUADRANTS, NO BM AT THIS TIME, WILL FOLLOW UP WITH DR DUE TO CONSIPATION. PT HAS JACOBSON CATH IN PLACE DRAINING TO GRAVITY YELLOW URINE, NO SEDIMENT OR BLOOD NOTED IN URINE. NO PENILE DISCHARGE NOTED BUT SCROTAL EDEMA IS PRESENT. PT SKIN IS WARM, DRY AND CONSISTENT WITH ETHNICITY, CAP REFILL IMMEDIATE. SCDS ARE IN PLACE, PLT LOW AT THIS TIME. PT HAS +3 EDEMA TO BUE, WORSE ON RUE THAN LEFT, ACTIVE WEEPING FROM BUE NOTED SEROUS IN COLOR. PT HAS SCLERAL EDEMA PRESENT BILATERALLY. PT CARDIAC RHYTHM A.FIB WITH BBB AND FREQUENT PVC'S. PT HAS LIJ INFUSING AND RIJ NICOLE CATH CDI. PT ON DOPAMINE DRIP, TITRATED TO 3 MCG/KG/MIN MAP IS 84. PT IS ATTACHED TO EARLY CHILDHOOD EDUCATION COORDINATOR AND WITHIN CLOSE VIEW OF NURSES STATION. WILL CONTINUE TO MONITOR PT AT THIS TIME.
--- NOTE | 2017-01-21 08:20 | NUR ---
CHIRAG RT AT BEDSIDE FOR BREATHING TX.
--- NOTE | 2017-01-21 08:42 | NUR ---
PT LETHARGIC, FENT TITRATED TO 0.25 MCG/KG/HR IN PREPERATION FOR CPAP AND WEANING. WILL FOLLOW UP WITH FOR PLAN OF CARE.
--- NOTE | 2017-01-21 09:38 | NUR ---
PATIENT ROUNDS WITH DR. CONTRERAS AND RESIDENTS. CHARGE NURSE AND PRIMARY NURSE AT BEDSIDE. UPDATES PROVIDED AND POC DISCUSSED. WILL CONTINUE TO MONITOR.
--- NOTE | 2017-01-21 11:11 | NUR ---
AT BEDSIDE, UPDATES PROVIDED. PER NO HD AT THIS TIME AND ADD PROSOURCE BID RECOMMENDED ALBUMIN IS LOW. WILL CONTINUE TO MONITOR PT AT THIS TIME.
--- NOTE | 2017-01-21 11:41 | NUR ---
SECOND K RIDER INITIATED AT THIS TIME. PROSOURCE GIVEN AT THIS TIME VIA OGT. WILL CONTINUE TO MONITOR PT AT THIS TIME.
--- NOTE | 2017-01-21 14:23 | NUR ---
AT BEDSIDE, UPDATES PROVIDED. NO NEW ORDERS AT THIS TIME. WILL CONTINUE TO MONITOR PT AT THIS TIME.
--- NOTE | 2017-01-21 14:35 | NUR ---
AND CHIRAG RT AT BEDSIDE TO PLACE PT ON CPAP 06/03. UPDATES PROVIDED AT BEDSIDE. PER TITRATE SEDATION, VERSED 0.25 MG/HR AND FENT 0.25 MCG/KG/HR. WILL CONTINUE TO MONITOR PT AT THIS TIME.
--- NOTE | 2017-01-21 14:47 | NUR ---
PER INCREASE SET HR ON PACEMAKER TO 60, [facility] CALLED AT THIS TIME AND REP DAVE TO BE CALLED OUT. WILL AWAIT ARRIVAL TO UNIT.
--- NOTE | 2017-01-21 16:59 | NUR ---
PT MAP 81, TITRATE DOPAMINE OFF AT THIS TIME. WILL CONTINUE TO MONITOR PT AT THIS TIME.
--- NOTE | 2017-01-21 18:10 | NUR ---
CHIRAG RT AT BEDSIDE TO PLACE PT BACK ON AC MODE, PEEP 5, FI02 28%, RATE 18, VT 500. WILL CONTINUE TO MONITOR PT AT THIS TIME.
--- NOTE | 2017-01-21 19:46 | NUR ---
RECEIVED REPORT FROM BRIAN HAMM. ALL QUESTIONS AND CONCERNS ANSWERED. WILL ASSUME PT CARE.
--- NOTE | 2017-01-21 20:15 | NUR ---
PT IS SHOWING S/S OF PAIN PER FLACC SCALE SUCH WINCING AND GRIMACING. FENTANYL TITRATED TO 0.5 MCG/KG/HR AT THIS TIME. WILL CONTINUE TO MONITOR FOR ANY ACUTE CHANGES.
--- NOTE | 2017-01-21 20:50 | NUR ---
DR HERNANDEZ AT BEDSIDE. UPDATES PROVIDED. NEW ORDERS RECEIVED.
--- NOTE | 2017-01-21 21:30 | NUR ---
PT IS INTUBATED AND SEDATED. FENTANYL DRIP 0.25 MCG/KG/HR AND VERSED DRIP 0.25 MG/HR. MRSS 4. PT IS UNABLE TO FOLLOW COMMANDS, CANNOT MAKE NEEDS KNOWN AT THIS TIME. OGT IN PLACE. LIJ IN PLACE AND SECURED, DRESSING CDI, ALL PORTS PATENT AND INFUSING WELL, NS AT 10 ML/HR. RIJ NICOLE CATH IN PLACE, CDI. PT INTUBATED WITH 8.0 ETT/24 LL. VENT SETTINGS: FIO2 28%, VT 500, RATE 18, PEEP 5. LUNG SOUNDS ARE CLEAR TO BILAT UPPER LOBES AND DIMINISHED TO BILAT BASES OF LOBES HEARD UPON AUSCULTATION. CHEST RISE IS EQUAL AND SYMMETRICAL. LEFT CHEST PACEMAKE/AICD NOTED. S1 AND S2 HEART SOUNDS PRESENT. ABD IS ROUND AND SOFT. ACTIVE BOWEL SOUNDS X4 QUADRANTS. NO BM NOTED. JACOBSON CATHETER IN PLACE, CLEAN AND PATENT, DRAINING LUCIAN YELLOW URINE AT THIS TIME. PT SKIN IS WARM AND MOIST. +2 PITTING EDEMA TO BUE AND +1 PITTING EDEMA TO BLE NOTED. SKIN TEAR TO LFA NOTED, DRESSING CDI. CAP REFILL <3. MODERATE PULSES TO BUE AND WEAK PULSES TO BLE. PT REPOSITIONED PER PROTOCOL. HOB AT 30 DEGREES. ORAL CARE PROVIDED. BP 98/57, MAP 71, HR 63, O2 98%, TEMP 98.0. NO S/S OF PAIN OR DISTRESS NOTED PER FLACC SCALE. WILL CONTINUE TO MONITOR FOR ANY ACUTE CHANGES.
[2017-01-22] VITALS (16 sets, daily range): BP systolic 95–160; BP diastolic 54–100
--- NOTE | 2017-01-22 00:19 | NUR ---
DR GODWIN AT BEDSIDE. UPDATES PROVIDED. NO NEW ORDERS AT THIS TIME.
--- NOTE | 2017-01-22 02:16 | NUR ---
PT REPOSITIONED PER PROTOCOL. PT ABLE TO OPEN EYES SPONTANEOUSLY. ASKED PT IF HE WAS IN ANY PAIN, PT SHOOK HEAD IN "NO" MOTION. WILL CONTINUE TO MONITOR.
[2017-01-22 05:40] LABS: PLATELET COUNT 18 x10^3mcL (130-400); RED CELL DISTRIBUTION WIDTH 16.1 % (11.5-14.5)
[2017-01-22 06:00] LABS: ATYPICAL LYMPH 1 %; BAND NEUTROPHIL 4 % (0-10); METAMYELOCTE 3 % (0-2); MONOCYTE 5 % (0-7); SEGMENTED NEUTROPHILS 86 % (37-75); acanthocyte (spur cell) 1+; ovalocyte/elliptocyte 1+; rbc morphology (normal/abnorm) ABNORMAL (NORMAL)
[2017-01-22 06:03] LABS: CALCIUM 7.8 mg/dL (8.5-10.1); CARBON DIOXIDE 23.6 mmol/L (21-32); CREATININE SERUM 2.5 mg/dL (0.7-1.3); PHOSPHOROUS 4.2 mg/dL (2.5-4.9); POTASSIUM SERUM 3.1 mmol/L (3.5-5.1)
[2017-01-22 06:04] LABS: ALBUMIN 0.8 g/dL (3.4-5.0)
--- NOTE | 2017-01-22 06:50 | NUR ---
PLATELETS 18. POTASSIUM 3.1. PAGED GATED DR LINDSEY. AWAITING FURTHER ORDERS. WILL CONTINUE TO MONITOR AT THIS TIME.
--- NOTE | 2017-01-22 07:15 | NUR ---
REPORT RECEIVED FROM [facility] SHIFT RN SIN. UPDATES PROVIDED, ALL QUESTIONS ANSWERED ALL CONCERNS ADDRESSED. WILL ASSUME CARE AND ASSESS PATIENT SHORTLY.
--- NOTE | 2017-01-22 07:17 | NUR ---
REPORT GIVEN TO SIN HAMM. ALL QUESTIONS AND CONCERNS ADDRESSED. WILL ENDORSE ALL PT CARE.
--- NOTE | 2017-01-22 07:25 | NUR ---
PATIENT ASSESSED AT THIS TIME. PATIENT IS RESTING CALMLY IN BED. VITAL SIGNS ARE TEMP 96.3, HR 73, 02 98, BP 155/66(104), RR 19. PATIENT OPENS EYES TO VERBAL STIMULI, IS NONVERBAL DUE TO INTUBATION, AND FOLLOWS COMMANDS APPROPRIATELY. PATIENT HAS NO HX OF CVA OR ALZHEIMERS. PUPILS ARE 3 MM AND BRISK BILATERALLY. PATIENT IS SEDATED ON FENT AT 0.5 MCG/KG/HR AND VERSED AT 0.5 MG/HR. RSS OF 4 NOTED. PATIENT IS ORALLY INTUBATED WITHJ 8.0 ETT THAT IS 24 LL. PATIENT IS ON AC MODE AT THIS TIME WITH THE FOLLOWING SETTINGS: AC, FIO2 28, RATE 18, PEEP 5, Vt 500. LUNG SOUNDS ARE CLEAR BILATERALLY. CHEST RISES SYMMETRICALLY. PATIENT IS RECEIVING NUTREN PULM THROUGH OGT AT A RATE OF 30 ML/HR WITH 50 ML FWF Q4 HOURS. RESIDUAL OF 5 ML REMOVED AND RETURNED. NO N/V NOTED. ABDOMEN IS FLAT AND SOFT AND SHOWS NO SIGNS OF PAIN UPON PALPATION. SKIN TEARS NOTED TO BILATERAL FOREARMS WITH DRESSING IN PLACE THAT ARE CDI. PURPLE/BLUE DISCOLORATION NOTED TO SACRUM WITH THE SKIN INTACT AND IS OPEN TO AIR. PATIENT IS NOT ON RESTRAINTS AT THIS TIME. PERIPHERAL PULSES ARE WEAK BILATERALLY. CAP REFILL IS <3 SECONDS URBANO, +3 EDEMA NOTED URBANO, SCROTAL EDEMA NOTED. SCD'S IN PLACE. WILL CONTINUE TO MONITOR PATIENT.
--- NOTE | 2017-01-22 07:30 | NUR ---
PATIENT TEMPERATURE 96.3, HEATER TURNED ON IN ROOM, AND WARM BLANKETS PROVIDED, WILL CONTINUE TO MONITOR PATIENT.
--- NOTE | 2017-01-22 08:00 | NUR ---
SEDATION OFF AT THIS TIME FOR CPAP TRIALS, WILL CONTINUE TO MONITOR PATIENT.
--- NOTE | 2017-01-22 08:20 | NUR ---
CPAP INITIATED AT THIS TIME PER RT LAURITA. WILL CONTINUE TO MONITOR PATIENT.
--- NOTE | 2017-01-22 08:20 | NUR ---
PLACED PT ON PSV CPAP / AT THIS TIME PER ORDER, ABG TO FOLLOW IN ONE HOUR, HANSEL ELISE.
--- NOTE | 2017-01-22 09:00 | NUR ---
DR. LINDSEY BEDSIDE WITH PATIENT AT THIS TIME. UPDATES PROVIDED, POTASSIUM ORDER CHANGED TO 40 MEQ BID. WILL CONTINUE TO MONITOR PATIENT.
--- NOTE | 2017-01-22 09:10 | NUR ---
DR. CONTRERAS AND RESIDENTS ROUNDING AT THIS TIME. UPDATES PROVIDED, ALL QUESTIONS ANSWERED, ALL CONCERNS ADDRESSED. WILL CONTINUE TO MONITOR PATIENT.
--- NOTE | 2017-01-22 09:20 | NUR ---
RT SHAY BEDSIDE AT THIS TIME FOR ABG. WILL CONTINUE TO MONITOR PATIENT.
--- NOTE | 2017-01-22 10:58 | NUR ---
DR. WU BEDSIDE AT THIS TIME FOR ASSESSMENT. UPDATES PROVIDED, ALL QUESTIONS ANSWERED ALL CONCERNS ADDRESSED. NO NEW ORDERS RECEIVED. WILL CONTINUE TO MONITOR PATIENT.
--- NOTE | 2017-01-22 11:26 | NUR ---
PATIENT REASSESSED AT THIS TIME NO ACUTE CHANGES NOTED OTHER THAN LUNG SOUNDS NOW RHONCHI AND URINE HAS BECOME YELLOW COMPARED TO LUCIAN DURING PREVIOUS ASSESSMENT. BLANKET PLACED ON PATIENT DUE TO TEMP 96.4 NOTED. WILL CONTINUE TO MONITOR PATIENT. DOPAMINE AND LEVOPHED REMAIN OFF AT THIS TIME. NO FENT OR VERSED ON AND PATIENT CONTINUES ON CPAP 06/03. WILL CONTINUE TO MONITOR PATIENT.
--- NOTE | 2017-01-22 11:45 | NUR ---
BEDSIDE AT THIS TIME REQUESTING NOTE FOR STEP-DAUGHTER FOR WORK. DR. LINDSEY PAGED AND WILL COME DOWN TO DISCUSS HEHP-EY-IDSF WITH . WILL CONTINUE TO MONITOR PATIENT.
--- NOTE | 2017-01-22 13:59 | NUR ---
DR. SLAUGHTER BEDSIDE AT THIS TIME. UPDATES PROVIDED, ALL QUESTIONS ANSWERED, ALL CONCERNS ADDRESSED. HD TO BE ORDERED TODAY, WILL AWAIT ORDERS.
--- NOTE | 2017-01-22 16:21 | NUR ---
Follow-up Nutrition Assessment Dx:Septick Shock, acute renal failure. Labs: (01/22) K:3.1L (replacing), BH, BUN:84 (trending up), Cr:2.5H trending down, Alb:0.8L, Ca:7.8L trending up, H/H:10.1/31L, (01/21) AST:10L, ALT:11L, KCL, Lactinex, Lasix,Levophed, Merem, Protonix, Versed, Zofran. Meds: Colace, D50, Coreg, KCL, Lactinex, Lasix, Levophed, Solumedrol, Versed, Zofran. Nutrition support TF: Nutren Pulmonary at 30ml/hr via OG tube and Prosource BID. TF intake: (01/20)213 (01/21)657 (01/22)336 (01/23)330 I/O: (01/20)1607, (01/21)384, (01/22) 690 (01/23)315 GRV: (01/21) 90ml, (01/22) 25ml Weights: (01/17) 263#, 119kg, (01/18) no wt recorded (01/19)272#, 123kg, (01/20)274#, 124.6kg, (01/21)277#, 125kg Skin: Jaundiced. Peripheral pulses are weak Hany. Pt has skin tears to BL forearms with dressing CDI. Edema: +3 weeping edema noted to all extremities. Last BM: No BM since 01/18. Pt was admitted with septic shock 2/2 aspiration pneumonia vs. cellulits s/p intubation on 01/18. 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 Pt remains intubated and able to follow simple commands with renal function improving. Pt had 1 HD treatment on 01/18, urine output improved with Lasix, no HD needed today.Per progress note (01/21), no acute events overnight. Platelete count went from 16 and 36 after receiving 1 unit of platelets. Chest x-ray with no significant changes compared to last chest radiograph. There is persistent congestive chnages, similar to last chest radiograph, underlying pulmonary infiltrates cannot be excluded. Pt had 1 HD treatment on 01/18, urine output improved with Lasix, no HD needed today. During visit, observed Nutren Pulmonary running at 30ml/hr with ProSource BID (provides 1200kcal and 79g pro) with FWF 50 ml q4. Per RN, pt is tolerating TF with gastric residuals WNL. Plan for Dr. Manzo to speak to the family about hospice and pallative care. Estimated Nutritional Needs : [place] BW 73kg Energy: 2087kcal/day vs. 1606-1825kcal/day ([place] state 2009 vs 22-25kcal of [place] body weight 73kg) Protein: 146g/day (2.0g/kg of ideal body weight 73kg) Fluid: 1.15L/day (pt with CHF and +3 edema or per doctors orders.) Nutrition Diagnosis 1. Inadequate enteral nutrition support related to pt with septick shock/acute renal failure as evidenced by current TF not meeting pts est needs. (meets 65% est caloric needs and 34% pro needs) (ongoing) 2. Altered nutrition labs related to acute renal failure as evidenced by BUN:67, Cr:2.8 (trending down) and Phos: 5.2 (trending down). (BUN: trending up, Cr:2.5(resolving, trending down) Phos:4.2 WNL) Intervention 1. Recommend increase rate to 35ml/hr (provides 1260kcal, 57g pro and 657ml FWF) 2. Recommend ProSource TID (provides 130kcal and 45g pro) Nutren pulmonary @35ml/hr +ProSource TID provides (1390kcal, 76% est caloric needs and 1026pro, 70% est pro needs) Monitor/Evaluate Goal:TF to meet 80% est needs with tolerance. Monitor: TF tolerance, Labs, renal function, GI function and wts. F/U in 2-3 days as high risk :01/24-
--- NOTE | 2017-01-22 16:45 | NUR ---
DR. GREEN BEDSIDE WITH PATIENT AT THIS TIME, UPDATES PROVIDED. NO NEW ORDERS RECEIVED. PER DR. GREEN, SEDATION TO BE STOPPED AT 0500 TOMORROW AND SEDATION TO BE REINITATED AT 0.25 MCG/KG/MIN ON FENT AND VERSED AT 0.25 MG/HR. CPAP TO BE STARTED AGAIN TOMORROW. WILL CONTINUE TO MONITOR PATIENT.
--- NOTE | 2017-01-22 16:55 | NUR ---
DR. FLORIAN BEDSIDE WITH PATIENT AT THIS TIME. UPDATES PROVIDED, ALL QUESTIONS ANSWERED ALL CONCERNS ADDRESSED. HOSPICE AND CODE STATUS DISCUSSED. ORDERS TO FOLLOW. PATIENT TO BE DNR AND DO NOT REINTUBATE.
--- NOTE | 2017-01-22 17:15 | NUR ---
ST. LIANET BEDSIDE WITH PATIENT AT THIS TIME TO INTERROGATE PACEMAKERS. PACER SETTING CHANGED TO [address] DAWN REQUEST. WILL CONTINUE TO MONITOR PATIENT.
--- NOTE | 2017-01-22 17:47 | NUR ---
BILATERALLY SOFT-WRIST RESTRAINTS PUT IN PLACE AT THIS TIME DUE TO PATIENT PULLING ON LINES AND TUBES. PATIENT EDUCATED MULTIPLE TIMES ON THE HARM THAT SELF-EXTUBATION WOULD CAUSE. WILL CONTINUE TO MONITOR PATIENT.
--- NOTE | 2017-01-22 18:05 | NUR ---
PATIENT PLACED BACK ON AC MODE AT THIS TIME. WILL CONTINUE TO MONITOR PATIENT.
--- NOTE | 2017-01-22 18:15 | NUR ---
PATIENT HAD A SMALL RUN OF VTACH, PATIENT IS COMPLAINING OF CHEST PAIN AND HR IS IN THE 110'S-120'S. MORPHINE AND NITRO TO BE ORDERED BY DR. MARQUEZ. WILL CONTINUE TO MONITOR PATIENT.
--- NOTE | 2017-01-22 19:05 | NUR ---
RT BEDSIDE AT THIS TIME FOR EKG. WILL CONTINUE TO MONITOR PATIENT.
--- NOTE | 2017-01-22 20:00 | NUR ---
TAPPER SUPERVISOR AT BEDSIDE FOR PROCEDURE. ORDER, MOST RECENT LABS AND 2L NS PROVIDED AT THIS TIME.
[2017-01-23] VITALS (14 sets, daily range): BP systolic 128–158; BP diastolic 65–104; Ht 175.3 cm; Wt 129.0 kg
[2017-01-23 05:14] LABS: BASOPHIL % 0 % (0-2); PLATELET COUNT 33 x10^3mcL (130-400); RED CELL DISTRIBUTION WIDTH 15.6 % (11.5-14.5)
[2017-01-23 05:24] LABS: CARBON DIOXIDE 25.2 mmol/L (21-32); CREATININE SERUM 2.8 mg/dL (0.7-1.3); PHOSPHOROUS 4.9 mg/dL (2.5-4.9); POTASSIUM SERUM 3.4 mmol/L (3.5-5.1)
--- NOTE | 2017-01-23 07:15 | NUR ---
REPORT RECEIVED AT BEDSIDE AT THIS TIME FROM NOC RN. ALL QUESTIONS ANSWERED, ALL CONCERNS ADDRESSED.
--- NOTE | 2017-01-23 07:30 | NUR ---
PT ASSESSED AT THIS TIME. PT LAYING IN BED RESTING. PT IS ORALLY INTUBATED BUT ABLE TO NOD TO ANSWER QUESTIONS APPROPRIATELY. PT HAS BILAT SOFT WRIST RESTRAINTS IN PLACE AT THIS TIME. NO ACUTE SIGN OF DISTRESS NOTED AT THIS TIME. WILL CONTINUE TO MONITOR.
--- NOTE | 2017-01-23 08:35 | NUR ---
PT PLACED ON CPAP TRIAL AT THIS TIME 06/03. TUBE FEEDING HELD.
--- NOTE | 2017-01-23 08:35 | NUR ---
PLACED PT ON PSV CPAP 06/[address] NORMA SANTIAGO, RN WEI AWARE, WILL MONITOR.
--- NOTE | 2017-01-23 09:30 | NUR ---
DR CHONG AND RESIDENTS ROUNDING AT THIS TIME. UPDATES PROVIDED. NO NEW ORDERS RECEIVED.
--- NOTE | 2017-01-23 12:00 | NUR ---
PT REASSESSED AT THIS TIME. PT LAYING IN BED, REMAINS ON CPAP TRIAL AT THIS TIME. NO ACUTE SIGNS OF DISTRESS NOTED AT THIS TIME. BILAT WRIST RESTRAINTS REMAIN IN PLACE. PT HAS Sadie JOSEPH AND LAURA. WILL CONTINUE TO MONITOR PT'S STATUS THROUGHOUT SHIFT.
--- NOTE | 2017-01-23 12:15 | NUR ---
DR SLAUGHTER AT BEDSIDE FOR UPDATES AND TO ASSESS PT. PT TO RECEIVE DAILYSIS TOMORROW.
--- NOTE | 2017-01-23 13:25 | NUR ---
DR REYNOLDS IN TO ASSESS PT AT THIS TIME.
--- NOTE | 2017-01-23 14:15 | NUR ---
DR GREEN AT BEDSIDE TO ASSESS PATIENT. PATIENT UPDATE PROVIDED TO PATIENT'S . ALL LABS AND RADIOLOGY REPORTS REVIEWED WITH PATIENT'S . ALL QUESTIONS AND CONCERNS ADDRESSED BY DR GREEN. WILL CONTINUE TO MONITOR.
--- NOTE | 2017-01-23 14:29 | NUR ---
DR GREEN AT BEDSIDE AT THIS TIME TO ASSESS PT'S STATUS. UPDATES PROVIDED.
--- NOTE | 2017-01-23 14:32 | NUR ---
ORDER RECEIVED FOR H.D. TOMORROW 01/24/17. TELEPHONED CLEMONS FROM Elle GUSMAN AND MADE AWARE. PRIMARY RN WEI MADE AWARE.
--- NOTE | 2017-01-23 14:38 | NUR ---
DR NORMAN, [facility] AND ALEJANDRA RN AT BEDSIDE. PATIENT TO HAVE PIGTAIL PLACEMENT TO LEFT SIDE OF CHEST WALL. PATIENT'S EXPLAINED PROCEDURE BY DR NORMAN AND SIGNED CONSENT. WILL CONTINUE TO MONITOR.
--- NOTE | 2017-01-23 15:00 | NUR ---
PT EXTUBATED AT THIS TIME. FAMILY AWARE. FAMILY IN WAITING ROOM AT THIS TIME.
--- NOTE | 2017-01-23 15:05 | NUR ---
PT REASSESSED AT THIS TIME. PT A&OX4 ABLE TO MAKE NEEDS KNOWN. PT ON 2LPM OF OXYGEN BY NC. PT SHOWS NO ACUTE SIGNS OF DISTRESS. RESTRAINTS REMOVED AT THIS TIME. PT EDUCATED ON NOT PULLING ON LINES. FAMILY EDUCATED. FAMILY AT BEDSIDE.
--- NOTE | 2017-01-23 16:52 | NUR ---
CENTRAL LINE DSG CHANGE PROVIDED AT THIS TIME.
--- NOTE | 2017-01-23 17:45 | NUR ---
BEDSIDE SWALLOW SCREEN PERFORMED AT THIS TIME. PT ABLE TO TOLERATE WATER, ICE, APPLESAUCE, AND PUDDING.
--- NOTE | 2017-01-23 19:26 | NUR ---
REPORT TAKEN FROM WEI, ALL CARE ENDORSSED.
--- NOTE | 2017-01-23 19:40 | NUR ---
PT WAS EXTUBATED TODAY AT 1500. PT BURKE WELL SWOLLOW EVAL WAS DONE PT IS NOW ON RENAL MECHANICAL SOFT. LUNG SOUND CLEAR BILAI AND DIM TO BASES. ON 2LNC. LIJ INTACT. AND R NICOLE CATH. HD WAS DONE ON 26 AND PULLED DOWN 5L. PT HAS JACOBSON WITH A GOOD AMOUNT OF URINE. SCLERAL EDEMA, AND BLE. SLIGHTLY JAUNDICE TO BLE, SKIN TEAR TO BUE COVERED WITH DRESSING. PT IS A/O X4, CLEAR SPEECH, FOLLOWS COMMAND. REPOSITION PER PROTOCOL. SAFETY IN PLACE. CALL LIGHT WITHIN REACH. WILL CONTINUE TO MONITOR.
--- NOTE | 2017-01-23 22:00 | NUR ---
RT AT PT BED PER PROTOCOL.
--- NOTE | 2017-01-24 00:05 | NUR ---
DR GODWIN IN UNIT UPDATED ON PT'S STATUS. NO NEW ORDER GIVEN AT TIME.
[2017-01-24 00:30] VITALS: BP 151/95
--- NOTE | 2017-01-24 00:30 | NUR ---
PT IS A/O X4. FOLLOWS COMMAND. CLEAR SPEECH. RESP IS EVEN AND UNLABORED. 2LNC. SAT 99%. LIJ CENTRAL.. LEFT QIUNTION CATH HD PER DR ORDER. ABD IS SOFT AND ROUND. EDEMA TO BLE. REPOSITION PER PROTOCOL SAFETY IN PLACE. CALL LIGHT WITHIN REACH. WILL CONTINUE TO MONITOR.
--- NOTE | 2017-01-24 02:00 | NUR ---
FULL BATH GIVEN. AND AND BED SHEETS CHANGES. PT IS CDI.
--- NOTE | 2017-01-24 03:14 | NUR ---
PT IS HAVING DRY COUGH. CALLED DR HERNANDEZ AND AN ORDER FOR COUGH. MED GIVEN. WILL CONTINUE TO AGUSTINA.
[2017-01-24 04:01] VITALS: BP 148/88
--- NOTE | 2017-01-24 04:33 | NUR ---
DR LINDSEY IN UNIT. UPDATED ABOUT PT'S STATUS. DR LINDSEY AT PT BEDSIDE ASSESS PT.
[2017-01-24 05:43] LABS: CALCIUM 8.1 mg/dL (8.5-10.1); CARBON DIOXIDE 26.2 mmol/L (21-32); CREATININE SERUM 2.6 mg/dL (0.7-1.3); POTASSIUM SERUM 3.4 mmol/L (3.5-5.1)
--- NOTE | 2017-01-24 06:00 | NUR ---
PTT 53.7 DR METCALF AWARED.
[2017-01-24 06:02] LABS: RED CELL DISTRIBUTION WIDTH 16.2 % (11.5-14.5)
[2017-01-24 06:03] LABS: PLATELET COUNT 64 x10^3mcL (130-400)
[2017-01-24 06:19] LABS: BAND NEUTROPHIL 0 % (0-10); BASOPHIL 0 % (0-2); MONOCYTE 1 % (0-7); SEGMENTED NEUTROPHILS 98 % (37-75); rbc morphology (normal/abnorm) ABNORMAL (NORMAL)
[2017-01-24 06:22] LABS: PLATELET MORPHOLOGY PLATELETS DECREASED
--- NOTE | 2017-01-24 06:29 | NUR ---
NO S/S OF DISTRESS. PT VERBALIZED THAT HE FEEL BETTER. FULL BATH GIVEN, AND BED SHEETS CHANGES. PT IS RESTING IN BED. WILL ENDORSE THE CARE TO DAY NURSE.
--- NOTE | 2017-01-24 07:20 | NUR ---
REPORT GIVEN TO B[facility]TA. ALL CARE ENDORSSED.
[2017-01-24 08:00] VITALS: BP 152/67
--- NOTE | 2017-01-24 08:00 | NUR ---
PT IS AOX4. FOLLOWS COMMANDS. PERRLA, 3MM SLUGGISH. PT IS BREATHING EVEN AND UNLABORED ON 2L NC. LUNG SOUNDS ARE COARSE TO BUL, DIMINISHED TO BASES. L IJ CVC INTACT, PORTS PATENT, DRESSING CDI. R JUG NICOLE INTACT, DRESSING CDI. PT DENIES CHEST PAIN. S1 S2 HEART SOUNDS AUSCULTATED. A-FIB. PULSES ARE MODERATE X4. CAP REFILL < 3 S. SKIN IS WARM AND WOODY. TRACE EDEMA TO BUE AND BLE. SCROTAL EDEMA NOTED. ABD IS SOFT AND ROUNDED. BOWEL SOUNDS ACTIVE X4Q. PT ON RENAL PO DIET. JACOBSON INTACT AND DRAINING VIA GRAVITY. URINE IS LUCIAN. PT DENIES PAIN AT THIS TIME. BED LOW, SIDE RAILS UP X3, CALL LIGHT IN REACH. WILL CONTINUE TO MONITOR.
--- NOTE | 2017-01-24 09:29 | NUR ---
PATIENT ROUNDS WITH DR. VASQUEZ AND DR. ALMEIDA AND RESIDENTS. PRIMARY NURSE AND CHARGE NURSE AT BEDSIDE. UPDATES PROVIDED AND POC DISCUSSED. WILL CONTINUE TO MONITOR.
[2017-01-24 11:35] VITALS: BP 140/83
--- NOTE | 2017-01-24 13:06 | NUR ---
DR GREEN AT BEDSIDE TO ASSESS PT. POC DISCUSSED.
--- NOTE | 2017-01-24 13:23 | NUR ---
REPORT GIVEN TO TED HAMM.
--- NOTE | 2017-01-24 13:23 | NUR ---
PT IS AOX4, BREATHING EVEN AND UNLABORED ON 2L NC. NO DISTRESS NOTED.
--- NOTE | 2017-01-24 13:55 | NUR ---
RECEIVED PT VIA BED FROM ICU. MADE COMFORTABLE. ORIENT TO ROOM. CALL LIGHT IN REACH. O2 2L NC IN PLACE. NO RESP DISTRESS. TELE #1 ATRIAL FIB WITH BBB. DENIES CHEST DISCOMFORT. LIJ IV TRIPLE LUMEN IN PLACE, PRN ADAPTER CAPS APPLIED AND LIGHT BLUE CAPS APPLIED. EACH LUMEN FLUSHES WELL. RIGHT IJ CATHETER IN PLACE FOR DIALYSIS. DIALYSIS NURSE AT BEDSIDE SETTING UP FOR DIALYSIS TX. DIALYSIS NURSE TO GIVE IV MERRUM AT END OF DIALYSIS TX. SCD IN PLACE. JACOBSON CATH DRAINS LAZAR RED COLOR URINE. DENIES PAIN. FAMILY AT BEDSIDE. BILATERAL ARMS AT ANTECUBITAL SITES WITH SKIN TEARS, LFA WEEPING. CLEANSED WITH NORMAL SALINE. TELPHA DRESSING APPLIED AND WRAPPED WITH AMARJIT. PT IS DNR. PURPLE ARMBAND APPLIED. REVIEWED DNR STATUS WITH PT AND FAMILY. VERBALIZED UNDERSTANDING.
--- NOTE | 2017-01-24 16:08 | NUR ---
Follow-up Nutrition Assessment Dx:Septick Shock, acute renal failure. Labs: (01/24): K:3.L, BH, BUN:105H, Cr:2.6H, Ca:8.1L, WBC:22.7H, H/H:10.6/33L Meds: Colace, D50, Coreg, KCL, Lactinex, Lasix, Protonix, Solumedrol,Zofran. Diet: Renal, mechanical soft chopped. Weights: (01/17) 263#, 119kg, (01/18) no wt recorded (01/19)272#, 123kg, (01/20)274#, 124.6kg, (01/21)277#, 125kg, (01/23) 284#, 129kg. Skin: Laceration to BUE. Edema: +2 edema to BUE and BLE, scrotal edema noted. Last BM: No BM since 01/18. Pt was admitted with septic shock 2/2 aspiration pneumonia vs. cellulits s/p intubation on 01/18. 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 Pt remains intubated and able to follow simple commands with renal function improving. Pt had 1 HD treatment on 01/18, urine output improved with Lasix, no HD needed today.Per progress note (01/21), no acute events overnight. Platelete count went from 16 and 36 after receiving 1 unit of platelets. Chest x-ray with no significant changes compared to last chest radiograph. There is persistent congestive chnages, similar to last chest radiograph, underlying pulmonary infiltrates cannot be excluded. Pt had 1 HD treatment on 01/18, urine output improved with Lasix, no HD needed today. During visit, observed Nutren Pulmonary running at 30ml/hr with ProSource BID (provides 1200kcal and 79g pro) with FWF 50 ml q4. Per RN, pt is tolerating TF with gastric residuals WNL. Plan for Dr. Manzo to speak to the family about hospice and pallative care. Per huddle this morning (01/24), pt was sucessfully estubated on 01/23 at 1500. pt is now on a Renal mechanical soft chooped diet and is pending a PT eval and possible transfer upstairs to telemetry. Per H&P note, pt pn 3L NC with dry cough, denies chest pain, shortness of breath, nausea/vomiting. Pt is awaiting HD. Estimated Nutritional Needs : [place] BW 73kg Energy: 2190-2555kcal/day (30-35kcal/kg for pt on HD) Protein: 88g/day (1.2g/kg for HD) Fluid: output +750ml/day (for CKD with HD or per doctors orders.) Nutrition Diagnosis 1. Inadequate enteral nutrition support related to pt with septick shock/acute renal failure as evidenced by current TF not meeting pts est needs. (meets 65% est caloric needs and 34% pro needs) (resolved, pt on PO diet of renal, mechanical soft chopped) 2. Altered nutrition labs related to acute renal failure as evidenced by BUN:67, Cr:2.8 (trending down) and Phos: 5.2 (trending down). (BUN: trending up, Cr:2.5(resolving, trending down) Phos:4.2 WNL) Intervention 1. Recommend continue with current diet order of Renal, mechanical soft chopped 2. Recommend adjusting BM regimen due to pt with no BM since 01/18. Monitor/Evaluate Goal:PO intake to meet 75% est needs. Monitor: PO intake, Labs, renal function, GI function F/U in 2-3 days as high risk :01/26-
--- NOTE | 2017-01-24 16:08 | NUR ---
1.Recommend continue with current diet order of Renal, mechanical soft chopped 2. Recommend adjusting BM regimen due to pt with no BM since 01/18.
--- NOTE | 2017-01-24 17:00 | NUR ---
[id number]. NO RISS COVERAGE.
--- NOTE | 2017-01-24 17:20 | NUR ---
DIALYSIS COMPLETED. TOTAL OUTPUT 2.8 LITERS ON REPORT FROM STACEY HAMMLEAD CUSTOMER SERVICE REPRESENTATIVE NURSE. PT SET UP FOR DINNER MEAL.
[2017-01-24 17:30] VITALS: BP 113/77
--- NOTE | 2017-01-24 19:15 | NUR ---
PT RESTING. NO DISTRESS. REPORT WITH JAYNA HAMM FACTORY SUPERVISOR AT BEDSIDE. URINE IN CATHETER NOW LUCIAN YELLOW NO REDNESS NOTED. CARE ENDORSED AT THIS TIME.
--- NOTE | 2017-01-24 20:17 | NUR ---
PT ALERT AND AWAKE. VERBAL WITH CLEAR SPEECH. ON O2 2L VIA NC. NOTED LUNGS WITH COARSE CRACKLES. NO S/S OF RESPIRATORY DISTRESS NOTED. HOB ELEVATED. DENIES ANY CHEST PAIN. LEFT TRIPLE LUMEN CENTRAL LINE PATENT AND INTACT. NICOLE CATH IN PLACE AND INTACT. ABD ROUND AND SOFT. BOWEL SOUNDS ACTIVE. SKIN WARM AND DRY. NOTED WITH GENERALIZED EDEMA PULSES PALPABLE. SCDS IN PLACE. F/C DRAINING LCUIAN URINE. NO S/S OF DISTRESS NOTED. SIDE RAILS UP. CALL LIGHT WITHIN REACH. WILL CONTINUE TO MONITOR.
[2017-01-24 21:56] VITALS: BP 156/92
--- NOTE | 2017-01-25 00:30 | NUR ---
PT RESTING IN BED WITH HOB ELEVATED. REMAINS ON O2 2L VIA NC. NO S/S OF RESPIRATORY DISTRESS NOTED. IV MERREM INFUSED WELL TO LEFT IJ. IV SITE CDI, NO S/S OF INFECTION NOTED. PT STATES LOWER BACK PAIN FEELING MUCH BETTER. REPOSITIONED FOR COMFORT. NO S/S OF DISTRESS NOTED. CALL LIGHT WITHIN REACH. WILL CONTINUE TO MONITOR.
[2017-01-25 06:16] VITALS: BP 149/84
[2017-01-25 06:32] LABS: CALCIUM 7.7 mg/dL (8.5-10.1); CARBON DIOXIDE 26.9 mmol/L (21-32); CREATININE SERUM 2.1 mg/dL (0.7-1.3); PHOSPHOROUS 5.1 mg/dL (2.5-4.9); POTASSIUM SERUM 3.7 mmol/L (3.5-5.1)
--- NOTE | 2017-01-25 06:47 | NUR ---
PT ALERT AND AWAKE. REMAINS ON O2 2L VIA NC. NO S/S OF RESPIRATORY DISTRESS NOTED. DENIES ANY PAIN. NO GRIMACING OR MOANING NOTED. REPOSITIONED FOR COMFORT. F/C DRAINED 850 LUCIAN URINE. RESTING WITH RELAXED FACIAL FEATURES. CALL LIGHT WITHIN REACH. WILL CONTINUE TO MONITOR.
[2017-01-25 07:45] LABS: PLATELET COUNT 74 x10^3mcL (130-400); RED CELL DISTRIBUTION WIDTH 15.5 % (11.5-14.5)
--- NOTE | 2017-01-25 08:00 | NUR ---
AWAKE, ALERT TO PERSON, AND HOSPITAL. FORGETFUL TO DATE AND TIME. REORIENTED. [facility] CONTACT. TEMP 98.8. TELE #1 ATRIAL FIB WITH OCCASIONAL PVC. DENIES CHEST DISCOMFORT. RESP 18 SHALLOW WITH INSP/EXP CRACKLES BILATERAL WITH EXPIRATORY WHEEZING LEFT BASE. PULSE OX 99% ON OXYGEN 2L NC. HOB ELEVATED FOR ASPIRATION PRECAUTIONS. ABD ROUNDED BOWEL TONES PRESENT. JACOBSON CATH DRAINS LUCIAN URINE. SCROTAL REGION ENLARGED AND RED. ELEVATED WITH PILLOW SLIP. NO PITTING EDEMA. BLE SKIN HARD TO TOUCH AND SKIN SCALEY. SCD IN PLACE. C/O MILD DISCOMFORT TO BLE. BUE WITH AMARJIT DRESSINGS FOR FOREARMS DUE TO SKIN TEARS. ARMS ELEVATED ON PILLOWS. IV NICOLE CATH TO RIGHT JUGULAR DIALYSIS CATHETER. LEFT JUGULAR WITH TRIPLE LUMEN CENTRAL LINE. EACH LINE FLUSHED AND PATENT. PT IS DNR. PURPLE ARMBAND IN PLACE. ON AIR MATTRESS FOR PRESSURE RELIEF. OPTIFOAM DRESSING TO SACRAL REGIOIN. REPOSITION PER PROTOCOL WITH WEDGE SUPPORT. SIDE RAILS UP X2. CALL LIGHT IN REACH. CONTACT ISOLATION MAINTAINED.
--- NOTE | 2017-01-25 08:30 | NUR ---
DR MARTÍNEZ AND MEDICAL TEAM IN ON ROUNDS. CHARGE AND PRIMARY NURSE PRESENT. REVIEWED WITH PATIENT HOSPICE EVALUATION. PT IN AGREEMENT. TO BE IN SOON TO REVIEW PLAN OF CARE.
[2017-01-25 08:44] LABS: BAND NEUTROPHIL 0 % (0-10); BASOPHIL 0 % (0-2); MONOCYTE 2 % (0-7); PLATELET MORPHOLOGY PLATELETS DECREASED; SEGMENTED NEUTROPHILS 97 % (37-75); rbc morphology (normal/abnorm) ABNORMAL (NORMAL)
--- NOTE | 2017-01-25 09:10 | NUR ---
PT MED WITH MORPHINE SULFATE 2MG IVP ORDERED FOR BLE DISCOMFORT.
[2017-01-25 10:16] VITALS: BP 130/76
--- NOTE | 2017-01-25 12:00 | NUR ---
AT BEDSIDE. CHERY ASHRAF RNGRINDING MACHINE OPERATOR PORTABLE NOTIFIED THAT HAS ARRIVED TO DISCUSS HOSPICE EVAL. PT HAD BROWN SOFT MUCOUS LIKE BM PER BEDPAN. SKIN CARE PROVIDED. OPTIFOAM DRESSING REMOVED. SMALL DARK AREA RIGHT BUTTOCKS WIT SMALL SKIN TEAR. NO OTHER OPEN AREAS NOTED. CLEANSED WITH SALINE. PAT DRY. NEW OPTIFOAM APPLIED. REPOSITIONED TO RIGHT SIDE WITH WEDGE SUPPORT. HEELS FLOATED. DRESSINGS CHANGED TO BUE. SMALL SKIN TEARS TO ANTECUBITAL SITES. NO DRAINAGE, AREAS DRY. TELPHA APPLIED. WRAPPED WITH AMARJIT. STOCKINET APPLIED.
[2017-01-25 14:59] VITALS: BP 142/81
[2017-01-25 16:41] VITALS: BP 128/72
--- NOTE | 2017-01-25 17:00 | NUR ---
GPK=[id number]. NO RISS COVERAGE. AT BEDSIDE. STATES "WILL BE HERE TOMORROW AT 0930 TO SPEAK WITH HOSPICE NURSE." PT STATES "FEELS OK RIGHT NOW." DECLINES MORPHINE SULFATE AT THIS TIME. WILL CONTINUE TO MONITOR. ASSISTS WITH DINNER MEAL. CALL LIGHT IN REACH.
--- NOTE | 2017-01-25 18:07 | NUR ---
PT C/O PAIN TO LOWER LEGS AND BACK /10 AND NAUSEA. MED WITH MORPHINE SULFATE 2MG IVP AND ZOFRAN 4MG IVP. REPOSITIONED TO RIGHT SIDE WITH WEDGE SUPPORT. HEELS FLOATED. CALL LIGHT IN REACH. AMARJIT CAME OFF BUE. SITES CLEANSED WITH SALINE. TEGADERM APPLIED TO CONTINUE TO OBSERVE HEALING PROCESS.
--- NOTE | 2017-01-25 18:45 | NUR ---
DR APYAN CALLED TO CHECK ON PT STATUS. UPDATED. FOR HOSPICE EVAL TOMORROW MORNING.
--- NOTE | 2017-01-25 19:30 | NUR ---
SEEN IN BED AWAKE, ALERT, ORIENTED X3. NO ACUTE DISTRESS NOTED. BREATHING SHALLOW BUT EVEN ON O2 2LPM N/C. COARSE CRACKLES LUNG SOUND BILATERALLY. ON RT PROTOCAL. HOB ELEVATED. TLC TO LIJ, ALL LUMENS FLUSHED PATENT, DRSG CDI. NICOLE CATH TO RIJ FOR HEMODILAYSIS, LAST HD WAS 01/24/17, DRSG CDI. JACOBSON CATH DRAINING OUT LUCIAN URINE OUTPUT. AMARJIT DRSG TO BUE DRY AND INTACT. GENERALIZED BODY WEAKNESS, TOTAL CARE. CURRENTLY DNR STATUS WITH HOSPICE EVAL TOMORROW. ON LOW AIR MATTRESS. SCD TO BLE. WILL TRUN&REPOSITION Q 2HRS. DENIES PAIN TO LEGS AND BACK AT THIS TIME. PLAN OF CARE DISCUSSED. CALL LIGHT REINSTRUCTED AND PLACED WITHIN EASY REACH. SIDERAILS UP X2. CONTACT ISOLATION MAINTAINED. WILL CONTINUE TO MONITOR.
[2017-01-25 20:54] VITALS: BP 120/62
--- NOTE | 2017-01-25 23:11 | NUR ---
COMPLAINTS OF PAIN TO BACK AND LEGS WITH NAUSEA, MORPHINE 2MG IVP AND ZOFRAN 4MG IVP GIVEN, NO ADVERSE REACTION NOTED. REPOSITIONED TO LEFT SIDE. CALL LIGHT PLACED WITHIN EASY REACH. SIDERAILS UP X2.
--- NOTE | 2017-01-26 02:10 | NUR ---
RESTING WITH EYES CLOSE. REFUSED TO BE TURNED AND REPOSITIONED AT THIS TIME.
--- NOTE | 2017-01-26 02:20 | NUR ---
TURNED AND REPOSITION PT. NO SIGNS OF DISTRESS NOTED. WILL CONT TO MONITOR.
--- NOTE | 2017-01-26 04:00 | NUR ---
TURNED AND REPOSITIONED AT THIS TIME. STS PAIN IS TOLERABLE AT THIS TIME.
[2017-01-26 05:45] VITALS: BP 138/72
--- NOTE | 2017-01-26 06:26 | NUR ---
AFEBRILE, MORPHINE IV GIVEN X1 FOR BACK&LEGS PAIN WITH GOOD RELIEF. VOMITED X1 AFTER PO MEDS GIVEN, ZOFRAN 4MG IV GIVEN WITH GOOD RELIEF. TURNED&REPOSITIONED Q 2HRS. ALL RIJ PORTS FLUSHED PATENT.
[2017-01-26 06:52] LABS: BASOPHIL % 0 % (0-2); PLATELET COUNT 87 x10^3mcL (130-400); RED CELL DISTRIBUTION WIDTH 16.2 % (11.5-14.5)
[2017-01-26 06:56] LABS: CALCIUM 7.8 mg/dL (8.5-10.1); CARBON DIOXIDE 28.9 mmol/L (21-32); CREATININE SERUM 2.4 mg/dL (0.7-1.3); POTASSIUM SERUM 4.5 mmol/L (3.5-5.1)
--- NOTE | 2017-01-26 07:56 | NUR ---
PT IS A+OX3, COMPLAINING OF MILD PAIN, STATES NAUSEA HAS IMPROVED AFTER RECEIVING ZOFRAN, DENIES SOB AND HEADACHE, TELE 1, HAS PACEMAKER, PULSES MODERATE AND EQUAL [place], GENERALIZED BUE AND BLE EDEMA, COARSE CRACKLES AUSCULTATED, 2 L NC, BOWEL SOUNDS ACTIVE, JACOBSON PRESENT, DRAINING LUCIAN URINE, NICOLE CATH R IJ, ENLARGED SCROTAL AREA, GENERALIZED WEAKNESS, AIR MATTRESS, TOTAL CARE, SKIN TEARS BUE, SCARL DRESSING CDI, CENTRAL LINE L IJ, WBC 16.1, RBC 3.35, HGB 10.3, HCT 32, PLT 87.
--- NOTE | 2017-01-26 08:07 | NUR ---
LAB CALLED WITH CRITICAL VALUE BUN 102, WILL NOTIFY RESIDENT DURING ROUNDS.
[2017-01-26 08:35] VITALS: BP 138/72
--- NOTE | 2017-01-26 10:24 | NUR ---
PT RESTING IN BED, NO RESPIRATORY DISTRESS NOTED, DENIES PAIN, NAUSEA, SOB, AND HEADACHE. 3 LUMENS OF CENTRAL LINE FLUSHED, PATENT.
--- NOTE | 2017-01-26 11:30 | NUR ---
ASSISTED FOREST TECHNOLOGY PROFESSOR TO PULL UP AND REPOSITION PT.
--- NOTE | 2017-01-26 12:49 | NUR ---
PT RESTING IN BED, NO RESPIRATORY DISTRESS NOTED, DENIES PAIN, NAUSEA, SOB, AND HEADACHE.
[2017-01-26 13:45] VITALS: BP 124/37
--- NOTE | 2017-01-26 14:39 | NUR ---
PT HAVING NAUSEA AND SPITTING UP SALIVA, NO RESPIRATORY DISTRESS NOTED, DENIES PAIN, SOB, AND HEADACHE. PT DECLINES NAUSEA MEDS AT THIS TIME. WILL CONT TO MONITOR.
--- NOTE | 2017-01-26 16:20 | NUR ---
PT RESTING IN BED, NO RESPIRATORY DISTRESS NOTED, COMPLAINING OF NAUSEA AND HEARTBURN, REQUESTING NAUSEA MEDS.
[2017-01-26 16:59] VITALS: BP 126/48
--- NOTE | 2017-01-26 16:59 | NUR ---
PT COMPLAINING OF SEVERE PAIN AND NAUSEA, ZOFRAN AND MORPHINE GIVEN.
--- NOTE | 2017-01-26 17:29 | NUR ---
PT RESTING IN BED, NO RESPIRATORY DISTRESS NOTED, STATES PAIN AND NAUSEA ARE 0/10 AFTER RECEIVING MORPHINE AND ZOFRAN. NEW TEGADERMS PLACED ON SKIN TEARS BUE, JACOBSON CARE DONE. AT BEDSIDE.
--- NOTE | 2017-01-26 18:09 | NUR ---
PT RESTING IN BED, NO RESPIRATORY DISTRESS NOTED, DENIES PAIN, SOB, NAUSEA, AND HEADACHE. CBG ARIANNA WASH DONE.
--- NOTE | 2017-01-26 18:55 | NUR ---
PT RESTING IN BED, NO RESPIRATORY DISTRESS NOTED, DENIES PAIN, NAUSEA, SOB, AND HEADACHE. AT BEDSIDE.
--- NOTE | 2017-01-26 19:51 | NUR ---
REC'D PT FROM DAY NURSE. AAOX3. LAYING IN BED COMFORTABLY. DENIES PAIN. TELE #1. PULSES ARE EVEN AND PALPABLE. 2 L NC. NO SOB. CRACKLES HEARD BLB BUT CTA. BREATH SOUNDS ARE EVEN AND UNLABORED. SWELLING IN THE RUE. ABD IS SOFT AND ROUND AND ACTIVE. BLE EDEMA NOTED. JACOBSON CATHETER IN PLACE AND DRAINING LUCIAN URINE. FAMILY AT BEDSIDE. BED IN LOWEST POSITION. CALL LIGHT WITHIN REACH. WILL CONT TO MONITOR.
--- NOTE | 2017-01-26 20:10 | NUR ---
REPOSITION AND CLEANED PT. NO ACUTE DISTRESS NOTED. WILL CONT TO MONITOR.
[2017-01-26 21:12] VITALS: BP 128/80
--- NOTE | 2017-01-26 23:00 | NUR ---
REPOSITION AND TURNED PT. NO SIGN OF DISTRESS NOTED. WILL CONT TO MONITOR.
--- NOTE | 2017-01-27 02:50 | NUR ---
PT IS CURRENTLY ASLEEP. 2L NC. NO SOB. NO ACUTE DISTRESS NOTED. BREATH SOUNDS ARE EVEN AND UNLABORED. WILL CONT TO MONITOR.
--- NOTE | 2017-01-27 04:17 | NUR ---
ARIANNA ROMERO PT FOR HD TODAY. PT IS COMPLAINING OF BACK PAIN 02/06. WILL BE GIVING PAIN MED.
[2017-01-27 05:42] VITALS: BP 124/83
[2017-01-27 06:35] LABS: CALCIUM 7.7 mg/dL (8.5-10.1); CARBON DIOXIDE 28.8 mmol/L (21-32); CREATININE SERUM 2.6 mg/dL (0.7-1.3); PHOSPHOROUS 7.3 mg/dL (2.5-4.9); POTASSIUM SERUM 5.3 mmol/L (3.5-5.1)
--- NOTE | 2017-01-27 06:42 | NUR ---
PT SLEPT PERIODICALLY THROUGHOUT THE SHIFT. NO ACUTE DISTRESS OR SIGNIFICANT CHANGES NOTED. REPOSITION AND CLEAN PT. 2L NC IN PLACE. BREATH SOUNDS ARE EVEN AND UNLABORED. NO SOB. RIJ AND LIJ IN PLACE AND PATENT. WILL ENDORSE ALL CONTINUITY CARE TO ONCOMING NURSE.
[2017-01-27 07:36] LABS: PLATELET COUNT 100 x10^3mcL (130-400); RED CELL DISTRIBUTION WIDTH 16.1 % (11.5-14.5)
--- NOTE | 2017-01-27 08:00 | NUR ---
RECEIVED PATIENT ON BEDREST AND IS GRAYISH IN APPEARANCE WITH WITH SOEM SOB ON EXERTION. PATIENT HAS DIMINISHED BREATH SOUNDS AND IS CLEAR AT THIS TIME BUT POST THE BREATHING TREATMENT HE SOUNDS WET TO THE THROAT. BOWEL SOUNDS ARE HYPOACTV EAND ABDOME IS DISTENDED AND SOFT BUT NOTED EDEMA TO THE ABDOMEN, UPPT HIGHS THAT IS PITTING AND TO THE EXTREMITIES. PATIENT HAS A JACOBSON TO GRAVITY AND URINE IS MEDIUM LUCIAN AND NO SEDIMENT OR MUCUS NOTED. PATEINT HAS NOTED LABD OF WBC AT 16.3, LOGAN DHD OF 10.1/32, AND PLT COUT AT 100. PATIENT AHS POTASSIUM PREVIOUS DIALYSIS AT 5.3 AND BUT AT THIS TIME AT 115.0 AND CREATININE AT 2.6. PATIEN TAHS CA AT 7.7 AND PHOS AT 7.3, AND PATIENT HAS BEEN ON SOLUMEDROL ORDERED AND NOTED PATIEN THARo HAD CHEST XRAY WITH EDEMA NTOED AND POSSIBLE PNEUMONIA NOTED. PATIEN THAS HISTORY OF A FIB, VERTRICULA RESPONS , LUPUS, AND CHRONIC KIDNEY DISEASE WELL HTN. PATIENT NEEDS MAX ASSIST AND THIS IS IN FEEDING TURNING AND TOILETING. DENIES ANY PAIN AT THIS TIME. WILL CONTINUE TO ENCOURAGE DIET AND FLUID INTAKE TOLERATED. PATIENT HAS SCHEDULED DIALYSIS FOR TODAY. ALSO DISCUSSED IN HOSPICE EVAL. OSITO TIS A DNR PER HIS REQUEST. HISTOYR OF CHF, PACEMAKER, CHRONIC PAIN TO THE BACK ORIF OF THE BILATERAL HIPS AND LEUKOPNEIA WELL SLE AND A FIB. PAITEN AHS SWELLING TO THE SCROTAL AREA AND PAITEN HS BEEN ON 2 LITERS NASAL CANULA. PATIENT HAS SCALEY AREAS TO THE SKIN AND AND DARK DISCOLORATION TO THE LOWER EXTREMITIES. LAST DIALYSIS WAS ON THE TY . WILL CONTINUE TO MONITOR INDICATED.
[2017-01-27 09:50] VITALS: BP 167/68
--- NOTE | 2017-01-27 10:46 | NUR ---
SEEN BY DR CHONG AND STAFF AND PLAN OF CARE DISCUSSED AND INCLUDING THE PLAN FOR HOSPICE EVAL.
--- NOTE | 2017-01-27 10:47 | NUR ---
SEEN BY PT AND EXTREMITIES EXCERSIZED BUT PATIENT REMAINS IN BED DUE TO GENERAL WEAKNESS.
[2017-01-27 13:18] LABS: BAND NEUTROPHIL 1 % (0-10); BASOPHIL 0 % (0-2); PLATELET MORPHOLOGY PLATELETS DECREASED; SEGMENTED NEUTROPHILS 99 % (37-75); rbc morphology (normal/abnorm) NORMAL (NORMAL)
--- NOTE | 2017-01-27 13:27 | NUR ---
PATIENT AT BEDSIDE AND ENCOURAGING INTAKE OF DIET AND FLUIDS. PATIENT HAS HAD A POOR APPETITE TODAY. TOOK MEDICAITON WITHOUT PROBLEMS.
--- NOTE | 2017-01-27 14:30 | NUR ---
PATIENT WAS SEEN BY DR PEGGY LAKE AND PLAN FOR HOSPICE DISCUSSED. PATIENT REQUESTED PAIN MEDICATION AND GAVE MORPHINE ORDERED. WILL MONITOR FOR EFFECTIVENESS. FAMILY AT [facility] AND SUGGESTED TO REQUEST TIME OFF OF WORK TO CARE FOR HER FATHER. SHE IS A NURSE. CALLED DR PEGGY LAKE BUT SHE HAS LEFT THE BUILDING WILL CALL THE PROJECT ANALYST FOR A NOTE INDICATED.
--- NOTE | 2017-01-27 14:38 | NUR ---
CALLED [facility] AND THE PROCEDURE PLANNED FOR 6PM TONIGHT. WILL ADVISE THE FAMILY INDICATED.
--- NOTE | 2017-01-27 15:18 | NUR ---
PAGE GATED THE AUTOMATION QA LEAD AND REQUESTED NOTE FOR DAUGHTERS WORK FOR TO BE OFF TO CARE FOR THE PATIENT. PATIENTS DAUGHTER IS A NURSE. PATIENT IS DUE FOR DIALYSIS AT 600PM TONIGHT.
--- NOTE | 2017-01-27 15:37 | NUR ---
Follow-up Nutrition Assessment Dx:Septick shock, acute renal failure Labs: (01/27) K:5.3H, BH, BUN:115H, Cr:2.6H, Ca:7.7L, Phos:7.3H, H/H:10.1/32L, WBC:16.3H, Meds: Colace, D50, KCL, Lasix, Lactinex, Phoslo, Prilosec, Solumedrol, Zofran. Diet: Renal mechanical soft PO intake: (01/25) B:100%, L:100% Weights: (01/20) 274# (01/21) 277# (01/23)284# Skin: skin tears BUE, sacral wound dressing Edema: Generalized weakness, BUE edema, BLE edema Last BM: 01/25 Estimated Nutritional Needs unchanged from prior assessment:IBW 73kg Energy: 2190-2555kcal/day (30-35kcal/kg for pt on HD) Protein: 88g/day (1.2kg for HD) Fluid: output +750ml/day (for CKD with HD or per doctors orders) Nutrition Diagnosis 1. Inadequate enteral nutrition support related to pt with septick shock/acute renal failure as evidenced by current TF not meeting pts est needs. (meets 52% est caloric needs and 34% pro needs) resolved, pt on renal mechanical soft diet 2. Altered nutrition labs related to acute renal failure as evidenced by BUN:115 (H, trending up), Cr:2.8 (trending down) and Phos: 7.3(trending up) Pt admitted with septic shock and acute renal failure. Pt was intubated and sedated on tube feeding via OGT Nutren pulmonary goal 35ml/hr with ProSOurce TID. Pt was extubated 01/24 and diet was advanced to renal mechanical soft. Per progress note (01/26), pt had a hospice evaluation today with Man. Pt's is in agreement but pt is hesitent and would like to plan with Dt. Michele about [facility] hospice. Pt reports very low appetite and is not open to appetite stimulants. Pt was trying to eat last night but vomitted immediately after eating. During visit, pt reports wanted to try supplements because he was unable to tolerate lunch and dinner last night. Intervention 1. Recommend adding Novasource Renal TID (provides 1425kcal and 64.87g pro) Monitor/Evaluate Goal: PO intake at least 75% of estimated needs from meals and supplements Monitor: PO intake, Labs, GI function F/U in2-3 days as high risk 01/29-
--- NOTE | 2017-01-27 15:38 | NUR ---
1. Recommend adding Novasource Renal TID (provides 1425kcal and 64.87g pro)
--- NOTE | 2017-01-27 16:18 | NUR ---
PHYSICAL THERAPY DAILY NOTES CO-SIGN All documentation done by the Upfitter for 01/27/17 has been reviewed. I agree with the documentation. Reviewed/Co-Signed by: Ara Nolen PT Documentation Done by:RICHY DUDLEY SPTA POC REVIEWED W/ MOLDER MACHINE TENDER, SPTA; [employer].
--- NOTE | 2017-01-27 16:25 | NUR ---
DAUGHTER LEFT AND AT BEDSIDE. PATIENT HAD GOOD RELIEF WITH THE MORPHINE GIVEN. STILL AWAITING NOTE FOR PATIENT DAUGHTER PER REQUEST.
[2017-01-27 18:10] VITALS: BP 108/65
--- NOTE | 2017-01-27 18:10 | NUR ---
GAVE ZOFRAN AND MORPHINE FOR PAIN AND NAUSEA AND WILL CONTINUE TO MONITOR. NOTE GIVEN TO THE DAUGHTER FOR HER TO STAY OUT OF WORK IN ORDER TO HELP CARE FOR HER AILING FATHER.
--- NOTE | 2017-01-27 19:20 | NUR ---
PATIENT RECEIVED AWAKE, ALERT, AND ORIENTED X 3. NO DISTRESS NOTED AT THIS TIME. PATIENT DENIES SOB. PATIENT DENIES PAIN. CENTRAL LINE TO LIJ, PATENT AND INTACT. NICOLE CATH TO RIRavin, GUIDO. BED IN LOWEST POSITION. CALL LIGHT WITHIN REACH. WILL CONTINUE TO MONITOR.
--- NOTE | 2017-01-27 20:45 | NUR ---
DIALYSIS STARTED AT THIS TIME WITH NURSE LOMBARDI.
[2017-01-27 21:31] VITALS: BP 113/71
--- NOTE | 2017-01-28 00:26 | NUR ---
DIALYSIS COMPLETED AT THIS TIME. 3L OUT. PATIENT STABLE. WILL CONTINUE TO MONITOR.
--- NOTE | 2017-01-28 00:50 | NUR ---
PATIENT REFUSED TO BE REPOSITIONED AT THIS TIME.
--- NOTE | 2017-01-28 04:19 | NUR ---
PATIENT AWAKE AT THIS TIME. REFUSED TO BE REPOSITIONED AND DENIES PAIN. WILL CONTINUE TO MONITOR.
--- NOTE | 2017-01-28 05:11 | NUR ---
PATIENT RESTED THROUGHOUT THE NIGHT. NO DISTRESS NOTED. MEDICATED FOR PAIN WITH MORPHINE X 1 PER DOCTOR'S PRN ORDER. ALL NEEDS MET. SAFETY AND COMFORT MEASURES MAINTAINED. BED IN LOWEST POSITION. CALL LIGHT WITHIN REACH. WILL CONTINUE TO MONITOR AND ENDORSE TO NEXT SHIFT NURSE.
[2017-01-28 05:26] VITALS: BP 110/58
--- NOTE | 2017-01-28 07:10 | NUR ---
BEDSIDE REPORT RECEIVED FROM [facility] SHIFT NURSE AT THIS TIME. PATIENT ASLEEP, NO SIGNS OF DISTRESS NOTED, BREATHING EVEN AND UNLABORED. ALL SAFETY MEASURES IN PLACE, WILL CONTINUE TO MONITOR.
[2017-01-28 07:31] LABS: BASOPHIL % 0.2 % (0-2)
[2017-01-28 07:37] LABS: CALCIUM 7.6 mg/dL (8.5-10.1); CARBON DIOXIDE 30.1 mmol/L (21-32); CREATININE SERUM 2.2 mg/dL (0.7-1.3); MAGNESIUM 2.2 mg/dL (1.8-2.4); PHOSPHOROUS 6.7 mg/dL (2.5-4.9)
[2017-01-28 07:43] LABS: PLATELET COUNT 102 x10^3mcL (130-400); RED CELL DISTRIBUTION WIDTH 14.6 % (11.5-14.5)
[2017-01-28 07:50] VITALS: BP 113/59
--- NOTE | 2017-01-28 07:50 | NUR ---
PATIENT ASLEEP, EASILY AROUSED VIA VERBAL STIMULI, NO SIGNS OF DISTRESS NOTED. OREINTED X3, PATIENT TIRED/SLEEPY, DENIES HEADACHE. STATES CHEST PAIN IS PRESENT WHEN COUGHING, HR 61, REFUSING PAIN MEDICATION AT THIS TIME. ON O2 2L VIA NC, PRODUCTIVE COUGH PRESENT WITH SMALL AMOUNT OF WOODY COLORED SPUTUM EXPELLED. LIJ AND RIJ WNL, DRESSINGS INTACT. CALL LIGHT WITHIN REACH, ALL SAFETY MEASURES IN PLACE, WILL CONTINUE TO MONITOR.
--- NOTE | 2017-01-28 09:00 | NUR ---
DR WOODS IN TO ASSESS PATIENT AT THIS TIME. PATIENT STATES HE STILL HAS NOT DECIDED ON HOSPICE AND NEEDS MORE TIME. WILL CONTINUE TO MONITOR.
[2017-01-28 09:39] VITALS: BP 103/59
--- NOTE | 2017-01-28 10:55 | NUR ---
PATIENT AWAKE, NO SIGNS OF DISTRESS NOTED. REFUSED TO BE TURNED AT THIS TIME. ALL SAFETY MEASURES IN PLACE, WILL CONTINUE TO MONITOR.
--- NOTE | 2017-01-28 12:24 | NUR ---
PATIENT AWAKE, TIRED, RT AT BEDSIDE GIVING BREATHING TREATMENT ORDERED (SEE EMAR). PATIENT STATES HE IS NOT HUNGRY AND STILL DOES NOT FEEL LIKE EATING. ALL SAFETY MEASURES IN PLACE, WILL CONTINUE TO MONITOR.
--- NOTE | 2017-01-28 13:45 | NUR ---
PATIENT ASLEEP, NO SIGNS OF DISTRESS NOTED, EASILY AROUSED VIA VERBAL STIMULI. REFUSED TO BE TURNED AT THIS TIME. ALL SAFETY MEASURES IN PLACE, WILL CONTINUE TO MONITOR.
--- NOTE | 2017-01-28 15:46 | NUR ---
DR HERNANDEZ IN TO ASSESS PATIENT AT THIS TIME. MARILY AT BEDSIDE, ALL QUESTIONS AND CONCERNS ADDRESSED. WILL CONTINUE TO MONITOR.
--- NOTE | 2017-01-28 16:22 | NUR ---
PHYSICAL THERAPY DAILY NOTES CO-SIGN All documentation done by the Watch Repair Person for 01/28/17 has been reviewed. I agree with the documentation. Reviewed/Co-Signed by: Lauren Hyman DPT Documentation Done by:RICHY DUDLEY, SPTA/MAGY JAMISON, QA DEVELOPER I CONCUR W/QA DEVELOPER NOTES. QA DEVELOPER PRESENT DURING PT TX. CONT PER POC.
--- NOTE | 2017-01-28 17:08 | NUR ---
PATIENT AWAKE, ALERT, NO SIGNS OF DISTRESS NOTED. ALL NEEDS ATTENDED TO, ALL SAFETY MEASURES IN PLACE, REFUSED TO TURN AT THIS TIME, WILL CONTINUE TO MONITOR.
[2017-01-28 18:15] VITALS: BP 119/64
--- NOTE | 2017-01-28 19:30 | NUR ---
RECEIVED PT IN BED AWAKE, ALERT,ORIENTED X3. LUNG SOUNDS CONGESTED. PT COUGHING AT TIMES. ON O2 AT 2L VIA N/C. HE HAS NO C/O PAIN AT THIS TIME. W/ GENERALIZED EDEMA NOTED. BOWEL SOUNDS ACTIVE. W/ CENTRAL LINE TO LT IJ AND NICOLE CATH ON RT IJ BOTH INTACT. JACOBSON CATH INTACT AND PATENT DRAINING LUCIAN URINE . PT ON AIR MATTRESS. CALL LIGHT W/IN REACH. PT ON CONTACT ISOLATION.
--- NOTE | 2017-01-28 21:53 | NUR ---
PT C/O GEN BODY PAIN 12/07. MORPHINE SULFATE 2 MG IV GIVEN. PT REPOSITIONED MORE COMFORTABLY.
[2017-01-28 22:12] VITALS: BP 128/69
--- NOTE | 2017-01-28 22:23 | NUR ---
PT APPEARS TO BE SLEEPING MORE COMFORTABLY AFTER MORPHINE WAS GIVEN.
--- NOTE | 2017-01-29 | NUR ---
PT REMAINS ASLEEP AND APPEARS COMFORTABLE.
--- NOTE | 2017-01-29 03:25 | NUR ---
PT AWAKE, ALERT,ORIENTED. SPONGE BATH GIVEN. JACOBSON CATH CARE DONE. LINENS CHANGED. PT KEPT WARM AND COMFORTABLE.
[2017-01-29 05:58] VITALS: BP 121/60
--- NOTE | 2017-01-29 06:01 | NUR ---
PT SLEPT AT LONG INTERVALS. HE REMAINS ORIENTED X3. HE WAS MEDICATED FOR PAIN X1. PT LUNG SOUNDS STILL CONGESTED. HE HAD NO BM THIS SHIFT. JACOBSON CATH INTACT W/ 200 CC OUTPUT. PT SCHEDULED FOR HEMODIALYSIS TODAY.
--- NOTE | 2017-01-29 06:50 | NUR ---
HEMODIALYSIS STARTED AT THIS TIME.
[2017-01-29 07:25] LABS: PLATELET COUNT 82 x10^3mcL (130-400); RED CELL DISTRIBUTION WIDTH 16.1 % (11.5-14.5)
[2017-01-29 07:51] LABS: POTASSIUM SERUM 4.9 mmol/L (3.5-5.1)
[2017-01-29 07:52] LABS: CALCIUM 7.4 mg/dL (8.5-10.1); CARBON DIOXIDE 25.5 mmol/L (21-32); CREATININE SERUM 2.5 mg/dL (0.7-1.3)
--- NOTE | 2017-01-29 08:00 | NUR ---
PT AWAKE ALERT AND ORIENTED X3, MED SURG PT. GENERALIZED EDEMA, WEAK BLE PULSES. REFUSES SCDS. CRACKLES UPON AUSCULTATION TO BILATERAL LOBES. BOWEL TONES ACTIVE IN ALL QUADS. JACOBSON CATH IN PLACE. GENERALIZED WEAKNESS. SKIN TEAR TO BUE, AND R CALF. DENIES PAIN. RIJ AND LIJ PATENT. PT IS CALM AND COOPERATIVE WITH CARE. CALL LIGHT IN REACH WILL COTNINUE TO MONITOR.
[2017-01-29 10:14] VITALS: BP 120/57
[2017-01-29 10:28] LABS: BAND NEUTROPHIL 0 % (0-10); BASOPHIL 0 % (0-2); MONOCYTE 1 % (0-7); PLATELET MORPHOLOGY PLATELETS DECREASED; SEGMENTED NEUTROPHILS 96 % (37-75)
[2017-01-29 10:29] LABS: rbc morphology (normal/abnorm) ABNORMAL (NORMAL)
--- NOTE | 2017-01-29 14:39 | NUR ---
Follow-up Nutrition Assessment Dx:Septic shock, acute renal failure Labs: 01/29: B, BUN:110H, Cr:2.5H, Ca:7.4L, Phos:6.7H, WBC:19H, H/H:9.2/29L Meds: Colace, D50, Lactinex, Lasix, Phoslo, Prilosec, Solumedrol, Zofran Diet: Renal mechanical soft with Novasource Renal TID PO intake: (01/25) B:100%, L:100%, Weights: (01/23) 284#, 129kg Skin: skin tears x2 to BUE, wound to posterior right calf covered with thera honey and optifoam dressing. Edema: non pitting edema to BLE, R>L, 2 pitting edema to BLE Last BM: 01/25 Pt admitted with septick shock and acute renal failure. Pt was intubated 01/17 and was on TF of Nutren Pulmonary @35ml/hr with ProSource TID. Pt was extubated on 01/24 and advanced to renal mechanical soft. Per progress note 01/28, no acute events overnight. Pt is still thinking about hospice care. According to case management, patient can go to SNF only after his condition stabalizes and his hospice decision is made. Per RN note 01/27, pt with poor intake of diet and refused breakfast. Per RN note 01/28 pt with poor appetite and refusing to eat at this time. Per progress note 01/29, if BUN/Cr continue to rise, pt will need irish cath placement with outpatient HD set up. During visit, pt's stated pt did not eat his breakfast or lunch and was able to eat some jello and drank half of his Novasource Renal but does not like the taste due to it being too chalky. Pt is now open to appetite stimulant. Pt has no c/o N/V/D/C. Estimated Nutritional Needs unchanged from prior assessment: IBW 73kg Energy: 2190-2555kcal/day (30-35kcal/kg for pt on HD) Protein: 88-110g/day (1.2-1.5g/day for pt on HD) Fluid: output +750ml/day (for HD or per doctors orders) Nutrition Diagnosis 1. Inadequate enteral nutrition support related to pt with septick shock/acute renal failure as evidenced by current TF not meeting pts est needs (resolved, pt on renal mechanical soft) 2. Altered nutrition labs related to acute renal failure as evidenced by BUN:115 and Cr:2.8, Phos:7.3 (continues) 3. Inadequate protein/energy intake related to poor appetite as evidenced by pt only drinking half novasource renal and 0% brekfast and lunch. (continues) Intervention 1. Recommend continue with current diet of Renal mechanical soft with Novasource Renal TID (provides 1425kcal and 64.8g pro) 2. Recommend adding appetite stimulant (Megace) to help improve PO intake. Monitor/Evaluate Goal: PO intake at least 75% of estimated needs with meals and supplements. Monitor: PO intake, Labs, GI function F/U in 2-3 days as high risk 01/31-
--- NOTE | 2017-01-29 14:45 | NUR ---
PTS DECLINED PPD AT THIS TIME.
--- NOTE | 2017-01-29 14:48 | NUR ---
PT NOTES [address] PT CLEARED BY RN FOR TX. HOWEVER, PT DECLINED TX D/T FATIGUE AND WEAKNESS BROUGHT ON BY DIALYSIS IN AM. F/U TOMORROW. RN NOTIFIED. DISCUSSED WITH PRIMARY PHYSICAL THERAPIST.
--- NOTE | 2017-01-29 15:15 | NUR ---
PT RESTING IN BEDNO SIGNS OF DISTRESS CALL LIGHT IN REACH WILL CONTINUE TO MONITOR.
[2017-01-29 17:20] VITALS: BP 124/66
--- NOTE | 2017-01-29 18:50 | NUR ---
PT RESTING IN BED NO SIGNS OF DISTRESS. CALL LIGHT IN REACH WILL CONTINUE TO MONITOR.
[2017-01-29 18:51] VITALS: BP 105/56
--- NOTE | 2017-01-29 18:53 | NUR ---
PPD ADMINISTERED TO RIGHT INNER FOREARM
--- NOTE | 2017-01-29 19:40 | NUR ---
SEEN IN BED AWAKE, ALERT, ORIENTED X3. CONGESTED, NOTED WITH NON PRODCUTIVE COUGH AT TIMES. ON 2LPM N/C. HOB AT 45DEG. DENIES PAIN AT THIS TIME. EDEMA TO ALL EXTREAMITIES. S/P HD AT PREVIOUS SHIFT, NICOLE CATH WITH DRSG TO RIJ. LIJ TLC ALL PORTS FLUSHED PATENT, DRSG CDI. GEN BODY WEAKNESS, TOTAL CARE. CONTINUE TO TURN&REPOSITION Q 2HRS. JACOBSON CATH DRAINING OUT LUCIAN URINE OUTPUT. SKIN TEAR TO BUE WITH DRSG CDI. REFUSED SCD AT BEDSIDE OFFERRED. CONTACT ISOLATION MAINTAINED.
[2017-01-29 21:17] VITALS: BP 117/77
[2017-01-29 21:20] VITALS: BP 100/58
--- NOTE | 2017-01-29 22:00 | NUR ---
MUCINEX PO GIVEN FOR NON PRODUCTIVE COUGH PER PATIENT'S REQUESTED. REPOSITIONED TO LEFT SIDE.
--- NOTE | 2017-01-30 | NUR ---
RESTING WITH EYES CLOSE. NO ACUTE DISTRESS NOTED.
--- NOTE | 2017-01-30 01:00 | NUR ---
PATIENT ASKED FOR BEDPAN. BED FITZGERALD PROVIDED BY FRAMING CARPENTER. NO BOWEL MOVEMENT NOTED. Z GUARD APPLIED TO SCROTUM AREA. REPOSITIONED, KEPT HOB AT 30DEG, BLE OFF LOADED.
--- NOTE | 2017-01-30 01:00 | NUR ---
REPOSITIONED TO RIGHT SIDE. DENIES PAIN AT THIS TIME.
--- NOTE | 2017-01-30 03:30 | NUR ---
RESTING QUIETLY. REFUSED TO BE TURNED&REPOSITIONED AT THIS TIME.
[2017-01-30 05:33] VITALS: BP 98/55
[2017-01-30 05:39] VITALS: BP 103/58
[2017-01-30 07:24] LABS: CALCIUM 7.7 mg/dL (8.5-10.1); CARBON DIOXIDE 31.4 mmol/L (21-32); CREATININE SERUM 2.2 mg/dL (0.7-1.3); POTASSIUM SERUM 3.9 mmol/L (3.5-5.1)
[2017-01-30 07:43] LABS: BASOPHIL % 0 % (0-2); PLATELET COUNT 69 x10^3mcL (130-400); RED CELL DISTRIBUTION WIDTH 16.3 % (11.5-14.5)
--- NOTE | 2017-01-30 07:52 | NUR ---
PT AWAKE ALERT AND ORIENTED X4 ABLE TO MAKE NEEDS KNOWN. AIR MATTRESS IN PLACE. MED SURG PT. GENERALIZED WEAKNESS, EDEMA TO BILATERAL UPPER THIGHS, AND BUE.LUNGS CONGESTED. BOWLE TONES ACTIVE. DENIES PAIN AT THIS TIME. CALL LIGHT IN REACH WILL CONTINUE TO MONITOR.
[2017-01-30 09:32] VITALS: BP 114/57
--- NOTE | 2017-01-30 10:24 | NUR ---
PT RESTING IN BED REPOSITIONED TO OFFLOAD PRESSURE.
--- NOTE | 2017-01-30 11:20 | NUR ---
PT OFF THE FLOOR IN PRECEDURE.
--- NOTE | 2017-01-30 13:23 | NUR ---
PT BACK ON THE FLOOR. VSS. PT AWKAE ALERT AND ORIENTED X4 ABLE TO MAKE NEEDS KNOWN. FAMILY AT BEDSIDE WILL CONTINUE TO MONITOR.
[2017-01-30 13:28] VITALS: BP 127/71
[2017-01-30 17:06] VITALS: BP 116/74
--- NOTE | 2017-01-30 17:07 | NUR ---
SPOKE TO KACI THE DIALYSIS NURSE. ASKED IF PT WAS GOING TO BE DISCHARGED, CONFIRMED WITH SALVADOR FROM CASE MANAGEMENT THAT OF YET THERE IS NO FACILITY ACCEPTING THE PT, KACI MADE AWARE THAT THERE WILL BE DIALYSIS SCHEDULED FOR THE PT ALONG WITH ASPIRATION OF THE NEW TUNNEL CATH TOMORROW 01/31/17, KACI VERBALIZED UNDERSTANDING. DR CORDERO CONFIRMED HEMODIALYSIS AND STATED SHE WOULD PLACE THE ORDER.
--- NOTE | 2017-01-30 18:54 | NUR ---
PT RESTING IN BED NO SIGNS OF DISTRESS, CALL LIGHT IN REACH WILL CONTINUE TO MONITOR. DENIES SOB, COMFORTABLE ON 3L 02 VIA THE NC, PRODUCTIVE COUGH NOTED.
--- NOTE | 2017-01-30 19:30 | NUR ---
SEEN ON BED AWAKE, ALERT, ORIENTED X3. CONGESTED. ON O2 2LPM N/C. ON RT PROTOCAL. HOB ELEVATED AT 45 DEG. TOTAL CARE. REPORTS FINISHED HALF OF SANDWICH ON DINNER. DENIES PAIN. DRSG TO OLD NICOLE CATH SITE TO RIJ CDI, NEW TUNNEL CATHETAL TO RIGHT CHEST WITH DRSG CDI. HD FOR TOMORROW AT 0800HRS NOTED. LIJ TLC WITH ALL PORTS FLUSHABLE. JACOBSON CATH DRAINING LUCIAN URINE COLOR OUTPUT. REFUSED SCD. ON AIR MATTRESS. WILL CONTINUE TO TURN&REPOSITION Q 2HRS. CONTACT ISOLATION MAINTAINED.
[2017-01-30 21:37] VITALS: BP 104/55
--- NOTE | 2017-01-30 22:30 | NUR ---
REFUSED TO BE TURNED AND REPOSITIONED AT THIS TIME.
--- NOTE | 2017-01-31 01:00 | NUR ---
BED FITZGERALD PROVIDED, NO BM NOTED. REPOSTIONED AND KEPT HOB AT 30DEG.
--- NOTE | 2017-01-31 03:00 | NUR ---
RESTING WITH EYES CLOSE.
--- NOTE | 2017-01-31 05:00 | NUR ---
DRESSING TO LIJ CENTRAL LINE CHANGED. REPOSITIONED.
[2017-01-31 05:17] VITALS: BP 112/56
--- NOTE | 2017-01-31 07:30 | NUR ---
RECEIVED PT IN BED, A/A/O X 3. ABLE TO MAKE NEEDS KNOWN. DENIES CHEST PAIN OR DISCOMFORT AT THIS TIME. URBANO RADIAL AND PEDAL PULSES WEAK, CAP REFILL > 3 SECS. GENERALIZED EDEMA. URBANO UPPER AND LOWER LUNGS SOUND COARSE CRACKLES / RHONCHI. HAS NON-PRODUCTIVE COUGH, ACCORDING TO PT. ON RT PROTOCOL. LAST BM 01/25/17. ABD ROUND, SOFT, NON-TENDER. NORMOACTIVE BOWEL SOUNDS X 4 QUADS. ON F/C, DRAINING LUCIAN URINE. NO DYSURIA. GENERALIZED WEAKNESS, ON AIR MATTRESS. SKIN TEAR TO BUE COVERED WITH TAGADERM, NO ACTIVE DRAINAGE NOTED. HAS DRESSING TO R CALF, AND OPTIFOAM ON SACRAL AREA. ALL CDI. DENIES PAIN AT THIS TIME. HAS TUNNELLED CATH ON R UPPER CHEST FOR H/D, CDI. LIJ CDI. SIDE RAILS UP X 2, CALL LIGHT WITHIN REACH. WILL CONTINUE TO MONITOR.
[2017-01-31 07:32] LABS: BASOPHIL % 0 % (0-2); PLATELET COUNT 59 x10^3mcL (130-400)
[2017-01-31 07:38] LABS: CALCIUM 7.5 mg/dL (8.5-10.1); CARBON DIOXIDE 26.8 mmol/L (21-32); CREATININE SERUM 2.1 mg/dL (0.7-1.3); POTASSIUM SERUM 3.6 mmol/L (3.5-5.1)
--- NOTE | 2017-01-31 08:25 | NUR ---
DR CHONG, RESIDENTS, CHARGE NURSE, AND ASSIGNED NURSE CAME IN TO SEE PT; DISCUSSED CARE PLAN WITH PT; ALL QUESTIONS ANSWERED; PT VERBALIZED UNDERSTANDING.
[2017-01-31 09:56] VITALS: BP 114/51
--- NOTE | 2017-01-31 12:47 | NUR ---
PT NOTES CLEARED BY RN FOR P.T. TX. SPOKE W/ DR. HERNANDEZ REGARDING PATIENT. DR. HERNANDEZ CLEARED PATIENT FOR P.T. TX. FIRST ATTEMPT (0840), PATIENT IS ASLEEP, BUT AROUSABLE. PATIENT IS DECLINING THERAPY AT THIS TIME. REQUEST TO BE FOLLOWED UP AT A LATER TIME. SECOND ATTEMPT ([id number]), PATIENT IS AWAKE & ALERT IN BED. ROD DRAWER IS GIVING PATIENT BED BATH. ROD DRAWER IS REQUESTING ASSISTANCE W/ BED MOBILITY LOGROLLING & SCOOTING IN BED. LOGROLLING LEFT<>RIGHT W/ MAX ASSIST OF 2. SCOOTING TO HOB IN SUPINE TOTAL ASSIST OF 3. PATIENT IS REQUESTING TO HOLD P.T. TX AT THIS TIME D/T DIALYSIS TODAY. PATIENT EDUCATED ON THER EX FOR BILAT LE/UE 3-4X/DAY ABOUT 5-10 REPS. RN IS NOTIFIED. DISCUSSED W/ PRIMARY PHYSICAL THERAPIST. LEFT IN CARE OF ROD DRAWER "LUCIA" SIDELYING TO LEFT. CALL BUTTON & TABLE IN REACH. BED ALARM ON. AIR MATTRESS ON. ALL LINES INTACT. TA15',2PA,PVE(1ST ATTEMPT/CONSULT W/ DOCTOR)
--- NOTE | 2017-01-31 12:50 | NUR ---
DIALYSIS NURSE CAME IN TO START PT ON SITTING FOR DIALYSIS. GIVEN 2L OF NS TO START PROCESS.
[2017-01-31 13:45] VITALS: BP 110/59
--- NOTE | 2017-01-31 15:18 | NUR ---
PHYSICAL THERAPY DAILY NOTES CO-SIGN All documentation done by the Time Study Observer for 01/31/17 has been reviewed. I agree with the documentation. Reviewed/Co-Signed by: Ara Nolen PT Documentation Done by:MAGY JAMISON TOLL LINE MECHANIC POC REVIEWED W/ TOLL LINE MECHANIC; PROGRESS BURKE.
--- NOTE | 2017-01-31 16:10 | NUR ---
DIALYSIS NURSE REPORTED THAT 2.4 LITERS WERE TAKEN OUT FROM PT, AND VS WERE STABLE. WILL CONTINUE TO MONITOR.
--- NOTE | 2017-01-31 16:31 | NUR ---
PT IN BED, AND DIALYSIS NURSE BY BEDSIDE. DIALYSIS ONGOING. VS ARE STABLE, NO RESPIRATORY DISTRESS, PAIN, OR DISCOMFORT NOTED. WILL CONTINUE TO MONITOR. TUNNELED CATH SITE DRESSING CHANGED BY DIALYSIS NURSE.
--- NOTE | 2017-01-31 18:00 | NUR ---
MEASURED INDURATION FOR TB TEST WITHIN 48 HOURS; 0 MM.
[2017-01-31 18:18] VITALS: BP 103/56
--- NOTE | 2017-01-31 18:40 | NUR ---
PT IN BED, EYES CLOSED. NO RESPIRATORY DISTRESS, PAIN, OR DISCOMFORT NOTED. SIDE RAILS UP X 2, CALL LIGHT WITHIN REACH. WILL ENDORSE TO NOC SHIFT.
--- NOTE | 2017-01-31 19:40 | NUR ---
RECEIVED REPORT FROM DAY SHIFT RN. PT RESTING IN SEMI MO'S POSITION. NO C/O PAIN AT THIS TIME. ON O2 2L VIA NC, NO SOB. TUNNELED RODRIGO SPLIT CATH ON RIJ, INTACT. LIJ TLC, INTACT. JACOBSON CATHETER DRAINING LUCIAN URINE. AIR MATTRESS IN PLACE. INSTRUCTED PT TO CALL IF ASSISTANCE IS NEEDED. CALL LIGHT WITHIN REACH.
[2017-01-31 20:47] VITALS: BP 104/55
[2017-02-01 05:33] VITALS: BP 101/55
[2017-02-01 06:35] LABS: CALCIUM 7.5 mg/dL (8.5-10.1); CARBON DIOXIDE 30.2 mmol/L (21-32); CREATININE SERUM 1.7 mg/dL (0.7-1.3); MAGNESIUM 1.8 mg/dL (1.8-2.4); PHOSPHOROUS 4.3 mg/dL (2.5-4.9); POTASSIUM SERUM 3.2 mmol/L (3.5-5.1)
--- NOTE | 2017-02-01 07:00 | NUR ---
PT SLEPT AT LONG INTERVALS DURING SHIFT. NO C/O PAIN. SAFETY MEASURES MAINTAINED. NO ACUTE DISTRESS NOTED. CALL LIGHT WITHIN REACH. WILL ENDORSE CONTINUITY OF CARE TO ONCOMING RN.
[2017-02-01 07:02] LABS: BASOPHIL % 0 % (0-2); RED CELL DISTRIBUTION WIDTH 15.3 % (11.5-14.5)
[2017-02-01 07:03] LABS: PLATELET COUNT 51 x10^3mcL (130-400)
--- NOTE | 2017-02-01 07:20 | NUR ---
RECEIVED PT IN BED, A/A/O X 3. PT IS MED/SURG, DENIES ANY PAIN OR DISCOMFORT AT THIS TIME. URBANO RADIAL PULSES PRESENT, URBANO PEDAL PULSES WEAK. HAS GENERALIZED EDEMA. CAP REFILL < 3 SECS. URBANO UPPER AND LOWER LUNGS COARSE CRACKLES / RHONCHI. CHEST RISING EVENLY. HAS NON-PRODUCTIVE COUGH. ON RT PROTOCOL. LAST BM 01/25/17, ABD ROUND, SOFT, NON-TENDER. NORMOACTIVE BOWEL SOUNDS X 4 QUADS. HAS POOR PO INTAKE. PT ON HEMODIALYSIS, HAS TUNNELLED CATH ON R CHEST, DRESSING IS SOILED. HAS F/C, DRAINING LUCIAN URINE. NO DYSURIA. PT ON AIR MATTRESS FOR SKIN MAINTENANCE, AND TURN / REPOSITION PROTOCOL. HAS GENERALIZED WEAKNESS. CDI DRESSINGS TO BUE SKIN TEARS. DRESSING TO R CALF SKIN TEAR CDI. OPTIFOAM ON SACROCOCCYX CDI. LIJ HAS 3 PORTS, ALL FLUSHED AND PATENT. SIDE RAILS UP X 2, CALL LIGHT WITHIN REACH. WILL CONTINUE TO MONITOR.
[2017-02-01 09:12] VITALS: BP 102/56
--- NOTE | 2017-02-01 09:23 | NUR ---
DR GARCÍA, RESIDENTS, CHARGE NURSE, AND ASSIGNED NURSE CAME IN TO SEE PT; DISCUSSED CARE PLAN WITH RESIDENT, INCLUDING PLAN TO DO ANOTHER SESSION OF DIALYSIS TODAY, AND DISCHARGE TO A NURSING FACILITY. PT VERBALIZED UNDERSTANDING.
[2017-02-01 10:15] VITALS: BP 102/56
--- NOTE | 2017-02-01 10:22 | NUR ---
RIGHT TUNNELLED CATH DRESSING CHANGED D/T SOILED. NO ACTIVE BLEEDING NOTED. CATH INTACT, SUTURES INTACT.
--- NOTE | 2017-02-01 13:30 | NUR ---
PLATEN BUILDER UP TIME ARRANGED WITH YAMIL . PLATEN BUILDER UP TIME ARRANGED FOR 1800. PRIMARY NURSE MICAELA MADE AWARE.
[2017-02-01] MEDS ORDERED: APR10 PO (14:23)
[2017-02-01] MEDS ORDERED: CEPACOL SORE TH1 LO4 MM (14:23)
[2017-02-01] MEDS ORDERED: MUCINEX600 MG PO (14:23)
[2017-02-01] MEDS ORDERED: Z5 PO (14:23)
--- NOTE | 2017-02-01 16:15 | NUR ---
Follow-up Nutrition Assessment Dx:Septick shock, acute renal failure Labs: (02/01) K:3.2L, B, BUN:62H, Cr:1.7H, Ca:7.3L, WBC:12H, H/H:8.1/25L Meds: Colace, lactinex, Lasix, Megace, Phoslo, Prilosec, Solumedrol, Zofran. Diet: Renal Weights: (01/17) 119kg, (01/19)123kg (01/20)124kg (01/21)125kg, (01/23)129kg (02/01) unable to obtain weight, pt was undergoing HD Skin: BUE:skin tear on tagaderm, right calf skin tear has tagaderm, sacral coccyx fragile skin. Edema: generalized edema on air mattress Last BM:01/25 Per progress note 01/31, pt denies any complaints at this time. Pt was treated for E.coli bacteremia, infection resolved and does not need to be in isolation. Discharge orders placed, pt to transfer to [facility], [facility]. During visit, pt was undergoing dialysis. Pt continues with poor appetite and Megace was started on last visit. Estimated Nutritional Needs unchanged from prior assessment: based on IBW 73kg Energy: 2190-2555kcal/day (30-35kcal/kg for HD) Protein: 88-110g/day (1.2-1.5g/day for HD and for skin tears) Fluid: output+750ml/day (for HD or per doctor) Nutrition Diagnosis 1. Inadeqaute enteral nutrition support related to pt with septick shock/acute renal failure as evidenced by current TF not meeting pts est needs (resolved, pt on renal diet) 2. Altered nutrition labs related to acute renal failure as evidenced by BUN:115 , Cr:2.8 and Phos:7.3 (continues0 3. Inadeqaute protein/energy intake related to poor appetite as evidenced by pt only drinking half novasource renal (continues, pt now on Megace) Intervention 1. Recommend adding back Novasource renal TID. 2. Recommend adding Nephrovite Monitor/Evaluate Goal: PO intake at least 75% of estimated needs from meals and supplements Monitor: PO intake, Labs, GI function F/U in 2-3 days as high risk 02/03-
--- NOTE | 2017-02-01 16:15 | NUR ---
1. Recommend adding back Novasource renal TID. 2. Recommend adding Nephrovite
[2017-02-01 18:48] VITALS: BP 102/56
--- NOTE | 2017-02-01 19:50 | NUR ---
GAVE REPORT TO STOGY MAKER AT [facility] FOR PT'S TRANSFER VIA [facility], WITH ESTIMATED DRYING ROOM SUPERVISOR TIME BETWEEN [phone]. PT GIVEN DISCHARGE PACKET, DISCUSSED CURRENT STAY, MEDICATIONS, AND PROCEDURES. PT VERBALIZED UNDERSTANDING, SIGNED ALL FORMS. WILL ENDORSE TO NOC SHIFT.
--- NOTE | 2017-02-01 20:15 | NUR ---
PT TRANSFERRED TO [facility]IA [facility]. PT STABLE. NO ACUTE DISTRESS. NO SOB ON O2 2L VIA NC. NO C/O PAIN.
== END 2017-02-01 20:15 | DRG 870 ==
LOC: ED 07:05 → IC 09:56 → MU 09:56 → DU 09:56 → IC 10:07 → DU 01-24 14:14 → MU 01-27 06:43
PROVIDERS: Family Medicine; Internal Medicine Cardiovascular Disease; Internal Medicine Nephrology; Specialist; Student in an Organized Health Care Education/Training Program; ADMIT Family Medicine
PROC: 05HM33Z Insertion of Infusion Device into Right Internal Jugular Vein, Percutaneous Approach (ICD-10-PCS; principal; 2017-01-17)
PROC: 5A1955Z Respiratory Ventilation, Greater than 96 Consecutive Hours (ICD-10-PCS; 2017-01-17)
PROC: B543ZZA Ultrasonography of Right Jugular Veins, Guidance (ICD-10-PCS; 2017-01-17)
PROC: 0BH17EZ Insertion of Endotracheal Airway into Trachea, Via Natural or Artificial Opening (ICD-10-PCS; 2017-01-17)
PROC: 05HN33Z Insertion of Infusion Device into Left Internal Jugular Vein, Percutaneous Approach (ICD-10-PCS; 2017-01-17)
PROC: B544ZZA Ultrasonography of Left Jugular Veins, Guidance (ICD-10-PCS; 2017-01-17)
PROC: 05HM33Z Insertion of Infusion Device into Right Internal Jugular Vein, Percutaneous Approach (ICD-10-PCS; 2017-01-17)
PROC: B543ZZA Ultrasonography of Right Jugular Veins, Guidance (ICD-10-PCS; 2017-01-17)
PROC: 05HM33Z Insertion of Infusion Device into Right Internal Jugular Vein, Percutaneous Approach (ICD-10-PCS; 2017-01-30)
PROC: B5131ZA Fluoroscopy of Right Jugular Veins using Low Osmolar Contrast, Guidance (ICD-10-PCS; 2017-01-30)
DX: A41.51 Sepsis due to Escherichia coli [E. coli] (principal); R65.21 Severe sepsis with septic shock; J69.0 Pneumonitis due to inhalation of food and vomit; J96.01 Acute respiratory failure with hypoxia; I50.43 Acute on chronic combined systolic (congestive) and diastolic (congestive) heart failure; N17.0 Acute kidney failure with tubular necrosis; E43 Unspecified severe protein-calorie malnutrition; E87.1 Hypo-osmolality and hyponatremia; I42.0 Dilated cardiomyopathy; Z68.41 Body mass index [BMI] 40.0-44.9, adult; I11.0 Hypertensive heart disease with heart failure; D69.59 Other secondary thrombocytopenia; I48.2 Chronic atrial fibrillation; M32.9 Systemic lupus erythematosus, unspecified; D63.8 Anemia in other chronic diseases classified elsewhere; E66.01 Morbid (severe) obesity due to excess calories; Z95.810 Presence of automatic (implantable) cardiac defibrillator; Z79.52 Long term (current) use of systemic steroids
CPT/HCPCS: 36556; 36600; 82962; 83880; 84439; 85378; 86580; 87107; 94150; 97110-GP; 97530-GP; A4301; A4628; A4719; C9113; J0171; J0278; J0690; J0696; J1265; J1642; J1644; J1720; J1815; J1940; J1956; J2001; J2060; J2185 ×2; J2250; J2270; J2405; J2543; J2704; J2920; J3010; J3480; J3490; J7030; J7040; J7042; J7050; J7620; P9035; P9047; Q0092; Q0163